=== PATIENT | female | born 1990 | race African-American/Black ===

== ENCOUNTER 2017-09-05 07:30 | Emergency (ER) | payer SELFPAY ==
[2017-09-05 08:08] LABS: #Basophils 0.1 thou/uL (0.0-0.2); #Lymphocytes 2.2 thou/uL (1.20-3.40); #Monocytes 0.8 thou/uL (0.11-0.59); #Neutrophils 14.3 thou/uL (1.40-6.50); %Basophils 0.7 % (0.0-1.0); %Eosinophils 0.3 % (0.0-10.0); %Lymphocytes 12.8 % (21.0-51.0); %Monocytes 4.3 % (0.0-10.0); %Neutrophils 81.9 % (42.0-75.0); Hemoglobin 13.5 g/dL (12.0-16.0); Mean Corpuscular HGB CONC 33.2 g/dL (32.0-36.0); Mean Corpuscular Hemoglobin 31.3 pg (27.0-31.0); Mean Corpuscular Volume 94.2 fl (81.0-99.0); Mean Platelet Volume 6.8 fL (7.4-10.4); Platelet Count 319 thou/uL (130-400); RBC Distribution Width 12.3 % (11.5-14.5); Red Blood Cell (RBC) Count 4.32 mill/uL (4.20-5.40); White Blood Cell (WBC) Count 17.5 thou/uL (4.8-10.8)
[2017-09-05 08:19] LABS: ALT (SGPT) 9 U/L (8-55); AST (SGOT) 10 U/L (5-34); Albumin 4.1 g/dL (3.5-5.0); Alkaline Phosphatase 49 U/L (40-150); Anion Gap 12 mmol/L (10-20); BUN (Urea Nitrogen) 8 mg/dL (7.0-18.7); Bilirubin, Total 0.9 mg/dL (0.2-1.2); CK (CPK) 71 U/L (29-168); Calc. Creatinine Clearance 0 mL/min (70-130); Calcium 9.5 mg/dL (7.8-10.44); Carbon Dioxide 22 mmol/L (22-29); Chloride 108 mmol/L (98-107); Estimated GFR-MDRD Greater than 90; Glucose 97 mg/dL (70-105); Potassium 3.6 mmol/L (3.5-5.1); Protein, Total 7.1 g/dL (6.0-8.3); Sodium 138 mmol/L (136-145)
[2017-09-05 08:22] LABS: CKMB 0.5 ng/mL (0-6.6); Troponin I Less than 0.010 ng/mL (< 0.028)
--- NOTE | 2017-09-05 09:06 | RAD ---
CHEST 2 VIEWS: HISTORY: Palpitations. Chest pain. COMPARISON: 08/30/16. FINDINGS: Cardiac silhouette and pulmonary vasculature are unremarkable. Mediastinum is midline. There is no confluent airspace consolidation, pleural fluid, or pneumothorax apparent. IMPRESSION: No active cardiopulmonary abnormalities demonstrated. POS: [facility]
[2017-09-05 09:12] LABS: Bilirubin Negative (Negative); Blood, Urine Moderate (Negative); Clarity CLOUDY (Clear); Glucose, Urine (Dipstick) Negative (Negative); Leukocyte Small (Negative); Nitrite Positive (Negative); Pregnancy Test - Urine (BHCG) Negative (Negative); Protein, Urine (Dipstick) Trace mg/dL (Neg-Trace); Specific Gravity, Urine 1.022 (1.002-1.036)
[2017-09-05 09:13] LABS: Pregu Control Background? CLEAR/WHITE (CLR/WHITE); Pregu Control Bar Appear? YES (CONTROL BAR); Specific Gravity 1.022 (1.002-1.036)
[2017-09-05 09:14] LABS: Bacteria/HPF 4+ HPF (None Seen); Pathc Cast-AUWi Flag 2.16 (0-2.49); Squamous Epithelial 0-3 HPF (0-3); WBC/HPF 21-50 HPF (0-3)
[2017-09-05 09:27] LABS: Hyaline Casts/LPF 0-3 HYALINE CAST LPF (0-3 Hyaline)
== END 2017-09-05 09:39 | disposition home or self-care (01) ==
LOC: ERS 07:30
DX: F41.9 Anxiety disorder, unspecified (principal); N39.0 Urinary tract infection, site not specified; F32.9 Major depressive disorder, single episode, unspecified; F17.210 Nicotine dependence, cigarettes, uncomplicated
CPT/HCPCS: 36416; 71046; 80053; 81003; 81015; 81025; 82550; 82553; 84484; 85025; 87077; 87086; 87186; 93005

== ENCOUNTER 2018-01-25 15:50 | Emergency (ER) | payer SELFPAY ==
[2018-01-25] MEDS ORDERED: Ketorolac Tromethamine 30 MG/ML VIAL ONE (16:19)
--- NOTE | 2018-01-25 16:23 | RAD ---
PA AND LATERAL VIEWS OF CHEST: Date: 01/25/18 HISTORY: Cough, fever. FINDINGS: Comparison made with exam of 09/05/17. The cardiomediastinum is normal. The lungs are expanded without focal areas of consolidation, pneumot horax, or pleural effusions. Bony structures are unremarkable. IMPRESSION: No radiographic evidence of acute cardiopulmonary process. POS: [facility]
[2018-01-25] MEDS ORDERED: Dexamethasone 4 MG TAB ONE (17:08)
== END 2018-01-25 17:11 | disposition home or self-care (01) ==
LOC: ERS 15:50
DX: J06.9 Acute upper respiratory infection, unspecified (principal); F41.9 Anxiety disorder, unspecified; F32.9 Major depressive disorder, single episode, unspecified; F17.210 Nicotine dependence, cigarettes, uncomplicated; Z79.899 Other long term (current) drug therapy
CPT/HCPCS: 71046; 94640; 96372; J1885; J7620; J8540

== ENCOUNTER 2018-05-04 09:39 | Emergency (ER) | payer SELFPAY ==
[2018-05-04 10:12] LABS: Bilirubin Negative (Negative); Blood, Urine Small (Negative); Clarity CLOUDY (Clear); Glucose, Urine (Dipstick) Negative (Negative); Leukocyte Moderate (Negative); Nitrite Positive (Negative); Protein, Urine (Dipstick) Negative (Neg-Trace); Specific Gravity, Urine 1.023 (1.002-1.036); Urobilinogen 0.2 mg/dL (0.2-1.0)
[2018-05-04 10:13] LABS: Pregnancy Test - Urine (BHCG) POSITIVE (Negative); Pregu Control Background? CLEAR/WHITE (CLR/WHITE); Pregu Control Bar Appear? YES (CONTROL BAR); Specific Gravity 1.023 (1.002-1.036)
[2018-05-04 10:14] LABS: Bacteria/HPF 4+ HPF (None Seen); Hyaline Casts/LPF 7-10 HYALINE CAST LPF (0-3 Hyaline); Pathc Cast-AUWi Flag 0.72 (0-2.49); Squamous Epithelial 0-3 HPF (0-3)
[2018-05-04 11:10] LABS: #Basophils 0.1 thou/uL (0.0-0.2); #Lymphocytes 2.5 thou/uL (1.20-3.40); #Monocytes 0.7 thou/uL (0.11-0.59); #Neutrophils 10.9 thou/uL (1.40-6.50); %Basophils 0.6 % (0.0-1.0); %Eosinophils 0.1 % (0.0-10.0); %Lymphocytes 17.3 % (21.0-51.0); %Monocytes 5.1 % (0.0-10.0); %Neutrophils 76.8 % (42.0-75.0); Hemoglobin 13.2 g/dL (12.0-16.0); Mean Corpuscular HGB CONC 35.2 g/dL (32.0-36.0); Mean Corpuscular Hemoglobin 32.1 pg (27.0-31.0); Mean Corpuscular Volume 91.3 fL (78.0-98.0); Mean Platelet Volume 6.5 fL (7.4-10.4); Platelet Count 334 thou/uL (130-400); RBC Distribution Width 11.8 % (11.5-14.5); Red Blood Cell (RBC) Count 4.09 mill/uL (4.20-5.40); White Blood Cell (WBC) Count 14.2 thou/uL (4.8-10.8)
[2018-05-04 11:29] LABS: ALT (SGPT) 11 U/L (8-55); AST (SGOT) 13 U/L (5-34); Albumin 4.6 g/dL (3.5-5.0); Alkaline Phosphatase 52 U/L (40-150); Anion Gap 11 mmol/L (10-20); BUN (Urea Nitrogen) 10 mg/dL (7.0-18.7); Bilirubin, Total 0.8 mg/dL (0.2-1.2); Calc. Creatinine Clearance 0 mL/min (70-130); Calcium 10.2 mg/dL (7.8-10.44); Carbon Dioxide 25 mmol/L (22-29); Chloride 103 mmol/L (98-107); Estimated GFR-MDRD Greater than 90; Globulin 3.4 g/dL (2.4-3.5); Glucose 92 mg/dL (70-105); Lipase 9 U/L (8-78); Potassium 4.1 mmol/L (3.5-5.1); Sodium 135 mmol/L (136-145)
--- NOTE | 2018-05-04 13:37 | ULT ---
PELVIC ULTRASOUND: DATE: 05/04/18. COMPARISON: None. HISTORY: A 27-year-old female with pelvic pain. TECHNIQUE: Multiplanar, escobedo scale sonographic imaging of the pelvis is obtained with transabdominal imaging and endovaginal imaging. The ovaries are assessed with color flow/spectral analysis. FINDINGS: An intrauterine gestational sac is noted. The uterus measures 8.0 x 4.0 x 5.3 cm. There is no significant free fluid seen in the pelvis. Within the above-described gestational sac is a yolk sac. There is a questionable small pole m easuring in the 2 mm range, which would correlate with a 5-week 5 day gestation. However, hear t tones could not be documented. The left ovary measures 1.6 x 1.6 x 2.7 cm and demonstrates blood flow without evidence for mass lesi on. The right ovary measures 3.1 x 1.9 x .9 cm and demonstrates blood flow without evidence for a ma ss lesion. No discrete subchorionic hemorrhage is evident on this examination. Estimated gestational age based on a crown-rump length of 0.2 cm is 5 weeks 6 days. Incidental note is made of a mildly complex follicle in the right ovary measuring 9 mm. IMPRESSION: Intrauterine gestational sac. Questionable internal pole with no heart tones appreciated on this exam. No subchorionic hemorrhage evident. Correlation with quantitative beta HCG at this time and in 48 hours is advised. The lack of he art tones could be on the basis of a normal early or spontaneous . POS: [facility]
== END 2018-05-04 12:00 | disposition home or self-care (01) ==
LOC: ERS 09:39
DX: O23.41 Unspecified infection of urinary tract in pregnancy, first trimester (principal); O99.511 Diseases of the respiratory system complicating pregnancy, first trimester; O99.341 Other mental disorders complicating pregnancy, first trimester; O99.331 Smoking (tobacco) complicating pregnancy, first trimester; Z71.6 Tobacco abuse counseling; Z79.899 Other long term (current) drug therapy
CPT/HCPCS: 36415; 76856; 80053; 81003; 81015; 81025; 83690; 84702; 85025; 86900; 86901; 99406

== ENCOUNTER 2018-05-05 07:08 | Emergency (ER) | payer SELFPAY ==
[2018-05-05] MEDS ORDERED: Ondansetron HCl/PF 4 MG/2 ML Vial ONE (08:20)
--- NOTE | 2018-05-05 09:18 | RAD ---
CHEST PA AND LATERAL: HISTORY: A 27-year-old female with a history of dyspnea. The patient is 5 weeks with chest pain, swe ating, abdominal pain, and difficulty breathing. COMPARISON: 01/25/18. FINDINGS: Heart size is normal. The lungs are clear. No pneumonia, edema, pleural effusion, or other acute pr ocess. POS: [facility]
[2018-05-05 09:45] LABS: #Lymphocytes 1.3 thou/uL (1.20-3.40); #Monocytes 0.3 thou/uL (0.11-0.59); #Neutrophils 12.6 thou/uL (1.40-6.50); %Basophils 0.3 % (0.0-1.0); %Eosinophils 0.1 % (0.0-10.0); %Lymphocytes 8.8 % (21.0-51.0); %Monocytes 2.3 % (0.0-10.0); %Neutrophils 88.5 % (42.0-75.0); Hemoglobin 12.5 g/dL (12.0-16.0); Mean Corpuscular HGB CONC 34.1 g/dL (32.0-36.0); Mean Corpuscular Hemoglobin 31.2 pg (27.0-31.0); Mean Corpuscular Volume 91.5 fL (78.0-98.0); Mean Platelet Volume 6.5 fL (7.4-10.4); Platelet Count 312 thou/uL (130-400); RBC Distribution Width 11.7 % (11.5-14.5); Red Blood Cell (RBC) Count 4.02 mill/uL (4.20-5.40); White Blood Cell (WBC) Count 14.2 thou/uL (4.8-10.8)
[2018-05-05 10:16] LABS: ALT (SGPT) 14 U/L (8-55); AST (SGOT) 14 U/L (5-34); Albumin 4.2 g/dL (3.5-5.0); Alkaline Phosphatase 49 U/L (40-150); Anion Gap 14 mmol/L (10-20); BUN (Urea Nitrogen) 11 mg/dL (7.0-18.7); Calc. Creatinine Clearance 0 mL/min (70-130); Calcium 9.6 mg/dL (7.8-10.44); Carbon Dioxide 20 mmol/L (22-29); Chloride 106 mmol/L (98-107); Estimated GFR-MDRD Greater than 90; Globulin 3.2 g/dL (2.4-3.5); Glucose 109 mg/dL (70-105); Potassium 4.2 mmol/L (3.5-5.1); Protein, Total 7.4 g/dL (6.0-8.3); Sodium 136 mmol/L (136-145)
[2018-05-05 10:20] LABS: CKMB 0.4 ng/mL (0-6.6); Troponin I Less than 0.010 ng/mL (< 0.028)
== END 2018-05-05 11:05 | disposition home or self-care (01) ==
LOC: ERS 07:08
DX: O21.9 Vomiting of pregnancy, unspecified (principal); O99.511 Diseases of the respiratory system complicating pregnancy, first trimester; J45.909 Unspecified asthma, uncomplicated; O99.341 Other mental disorders complicating pregnancy, first trimester; F41.9 Anxiety disorder, unspecified; F32.9 Major depressive disorder, single episode, unspecified; O99.331 Smoking (tobacco) complicating pregnancy, first trimester; F17.210 Nicotine dependence, cigarettes, uncomplicated; Z3A.01 Less than 8 weeks gestation of pregnancy
CPT/HCPCS: 36415; 71046; 80053; 82553; 84484; 85025; 85379; 93005; 96361; 96374; J2405

== ENCOUNTER 2018-12-31 17:28 | Emergency (ER) | payer MEDICAID, OTHER ==
[2018-12-31 18:21] LABS: #Basophils 0.1 thou/uL (0.0-0.2); #Eosinphils 0.1 thou/uL (0.0-0.7); #Lymphocytes 2.2 thou/uL (1.20-3.40); #Monocytes 0.7 thou/uL (0.11-0.59); %Basophils 0.6 % (0.0-1.0); %Eosinophils 0.9 % (0.0-10.0); %Lymphocytes 22.2 % (21.0-51.0); %Monocytes 6.9 % (0.0-10.0); %Neutrophils 69.4 % (42.0-75.0); Hemoglobin 12.3 g/dL (12.0-16.0); Mean Corpuscular HGB CONC 32.3 g/dL (32.0-36.0); Mean Corpuscular Hemoglobin 29.2 pg (27.0-31.0); Mean Corpuscular Volume 90.5 fL (78.0-98.0); Mean Platelet Volume 6.6 fL (7.4-10.4); Platelet Count 303 thou/uL (130-400); RBC Distribution Width 13.1 % (11.5-14.5); Red Blood Cell (RBC) Count 4.23 mill/uL (4.20-5.40)
[2018-12-31 18:53] LABS: ALT (SGPT) 33 U/L (8-55); AST (SGOT) 11 U/L (5-34); Albumin 3.7 g/dL (3.5-5.0); Alkaline Phosphatase 114 U/L (40-150); Anion Gap 11 mmol/L (10-20); BUN (Urea Nitrogen) 8 mg/dL (7.0-18.7); Bilirubin, Total 0.9 mg/dL (0.2-1.2); Calc. Creatinine Clearance 0 mL/min (70-130); Calcium 9.1 mg/dL (7.8-10.44); Carbon Dioxide 25 mmol/L (22-29); Chloride 108 mmol/L (98-107); Estimated GFR-MDRD Greater than 90; Globulin 3.1 g/dL (2.4-3.5); Glucose 101 mg/dL (70-105); Potassium 3.4 mmol/L (3.5-5.1); Protein, Total 6.8 g/dL (6.0-8.3); Sodium 141 mmol/L (136-145)
[2018-12-31] MEDS ORDERED: Diazepam 5 MG TAB ONE (19:21)
[2018-12-31] MEDS ORDERED: Ketorolac Tromethamine 30 MG/ML VIAL ONE (19:21)
== END 2018-12-31 20:45 | disposition home or self-care (01) ==
LOC: ERS 17:28
DX: M62.838 Other muscle spasm (principal); F32.9 Major depressive disorder, single episode, unspecified; F41.9 Anxiety disorder, unspecified; J45.909 Unspecified asthma, uncomplicated; Z87.891 Personal history of nicotine dependence
CPT/HCPCS: 36415; 80053; 83605; 85025; J1885

== ENCOUNTER 2019-01-01 09:10 | Inpatient (IN) | payer OTHER ==
[2019-01-01 09:56] LABS: Hemoglobin 12.7 g/dL (12.0-16.0); Mean Corpuscular HGB CONC 32.5 g/dL (32.0-36.0); Mean Corpuscular Volume 89.2 fL (78.0-98.0); Mean Platelet Volume 6.8 fL (7.4-10.4); Platelet Count 262 thou/uL (130-400); Red Blood Cell (RBC) Count 4.38 mill/uL (4.20-5.40); White Blood Cell (WBC) Count 24.6 thou/uL (4.8-10.8)
[2019-01-01 10:03] LABS: ALT (SGPT) 29 U/L (8-55); AST (SGOT) 12 U/L (5-34); Albumin 3.8 g/dL (3.5-5.0); Alkaline Phosphatase 113 U/L (40-150); Anion Gap 13 mmol/L (10-20); BUN (Urea Nitrogen) 10 mg/dL (7.0-18.7); Bilirubin, Total 1.3 mg/dL (0.2-1.2); Calc. Creatinine Clearance 0 mL/min (70-130); Carbon Dioxide 22 mmol/L (22-29); Chloride 108 mmol/L (98-107); Estimated GFR-MDRD Greater than 90; Globulin 3.1 g/dL (2.4-3.5); Glucose 110 mg/dL (70-105); Potassium 3.5 mmol/L (3.5-5.1); Protein, Total 6.9 g/dL (6.0-8.3); Sodium 139 mmol/L (136-145)
[2019-01-01] MEDS ORDERED: Acetaminophen 500 MG TAB ONE (10:07)
[2019-01-01 10:37] LABS: Band 12 % (5-11); Burr Cells SLIGHT = 2-5 cells (100X) (0-1/hpf); Elliptocytes SLIGHT = 2-5 cells (100X) (0-1/hpf); Lymphocytes 2 % (21-51); MDiff Complete? YES; Monocytes 3 % (0-10); Neutrophil 83 % (42-75); Platelet Morphology Comment Appears Adequate
[2019-01-01] MEDS ORDERED: Ondansetron PF 4 MG/2 ML Vial ONE (11:22)
[2019-01-01] MEDS ORDERED: Morphine 4 MG/ML VIAL ONE (11:22)
--- NOTE | 2019-01-01 12:29 | ULT ---
PELVIC ULTRASOUND INCLUDING TRANSABDOMINAL AND TRANSVAGINAL AND VASCULAR DUPLEX WITH COLOR AND SPECTR AL DOPPLER IMAGING: HISTORY: Pain. Vaginal delivery on 12/23/2018 with heavy bleeding and lower abdominal pain, which began yeste rday. FINDINGS: enlarged uterus. Mixed hypoechoic and intermediate density echogenicity within the endome trial cavity, evidence for blood, without a specific identifiable retained product. The uterus measures 13.4 x 6.3 x 9 cm. The right ovary measures 3.1 x 5.5 x 2.4 cm. The left ovary measures 3.4 x 4 x 1.8 cm. No abnormal pelvic fluid collection. Vascular duplex with color and spectral Doppler imaging demonstrates arterial inflow and venous outfl ow to the ovaries. No evidence for ovarian torsion. Trace cul-de-sac fluid. IMPRESSION: 1. Thickened endometrium with heterogeneously echogenic material within the uterus, which certainly could represent blood. 2. Somewhat enlarged ovaries bilaterally without evidence for ovarian torsion. 3. Trace cul-de-sac fluid. POS: [facility]
[2019-01-01] MEDS ORDERED: Clindamycin/D5W 900 mg/50 ml Premix Bag ONE (12:31)
[2019-01-01 12:41] LABS: Bilirubin Small (Negative); Blood, Urine Moderate (Negative); Clarity CLEAR (Clear); Glucose, Urine (Dipstick) Negative (Negative); Leukocyte Small (Negative); Nitrite Negative (Negative); Protein, Urine (Dipstick) 30 mg/dL (Neg-Trace); Specific Gravity, Urine 1.025 (1.002-1.036); pH, Urine 6.5 (5.0-9.0)
[2019-01-01 12:46] LABS: Bacteria/HPF None Seen HPF (None Seen); Hyaline Casts/LPF 4-6 HYALINE CAST LPF (0-3 Hyaline); RBC/HPF 21-50 HPF (0-3); Squamous Epithelial 0-3 HPF (0-3)
[2019-01-01] MEDS ORDERED: Ondansetron PF 4 MG/2 ML Vial IVP PRN (13:00)
[2019-01-01] MEDS ORDERED: Clindamycin/D5W 900 MG in Premix Bag 1 BAG IVPB ONE (13:00)
[2019-01-01] MEDS ORDERED: Ondansetron PF 4 MG/2 ML Vial SLOW IVP SCH (13:00)
[2019-01-01] MEDS ORDERED: Sodium Chloride 0.9% 1,000 ML IV SCH ×3 (13:00)
[2019-01-01] MEDS ORDERED: Ondansetron ODT 4 MG TAB SL PRN (13:00)
[2019-01-01] MEDS ORDERED: Morphine 4 MG/ML VIAL SLOW IVP SCH (13:00)
[2019-01-01] MEDS ORDERED: Acetaminophen 500 MG TAB PO SCH (13:00)
[2019-01-01] MEDS ORDERED: Gentamicin Sulfate 80 MG in Premix Bag 1 BAG IVPB ONE (13:15)
[2019-01-01] MEDS ORDERED: Lactated Ringer's 500 ML IV SCH (15:30)
[2019-01-01] MEDS: Ibuprofen 800 MG TAB PO PRN ×2 (15:35→22:30)
[2019-01-01] MEDS: Lactated Ringer's 1,000 ML IV SCH ×2 (15:41→22:32)
[2019-01-01] MEDS: Clindamycin/D5W 900 MG in Premix Bag 1 BAG IVPB SCH (20:32)
[2019-01-01] MEDS ORDERED: Gentamicin Sulfate 80 MG in Premix Bag 1 BAG IVPB SCH (21:00)
[2019-01-01] MEDS: Gentamicin Sulfate 80 MG in Premix Bag 1 BAG IVPB SCH (22:02)
[2019-01-01] MEDS ORDERED: Zolpidem Tartrate 5 MG TAB PO PRN (22:20)
[2019-01-02] MEDS: Acetaminophen 325 MG TAB PO PRN ×3 (00:26→21:34)
[2019-01-02] MEDS: Clindamycin/D5W 900 MG in Premix Bag 1 BAG IVPB SCH ×2 (03:54→12:24)
[2019-01-02] MEDS: Gentamicin Sulfate 80 MG in Premix Bag 1 BAG IVPB SCH ×2 (05:21→13:51)
[2019-01-02] MEDS: Ibuprofen 800 MG TAB PO PRN ×3 (06:35→20:51)
--- NOTE | 2019-01-02 06:58 | PDOC.EVN ---
Event Note - Event Note Event Note: Gent#1/Clinda#1 Complaining of increasing abdominal pain this AM. Temp to 104 last night, I was not notified. Abdomen is diffusely tender this AM. Plan: CT of abdomen. CBC ordered. BC and UCs are pending. I have notified [facility] for consult.
[2019-01-02 07:00] LABS: #Lymphocytes 1.1 thou/uL (1.20-3.40); #Monocytes 0.6 thou/uL (0.11-0.59); #Neutrophils 17.3 thou/uL (1.40-6.50); %Basophils 0.1 % (0.0-1.0); %Eosinophils 0.2 % (0.0-10.0); %Lymphocytes 5.8 % (21.0-51.0); %Monocytes 2.9 % (0.0-10.0); %Neutrophils 91.1 % (42.0-75.0); Mean Corpuscular HGB CONC 31.7 g/dL (32.0-36.0); Mean Corpuscular Hemoglobin 28.8 pg (27.0-31.0); Mean Corpuscular Volume 90.9 fL (78.0-98.0); Mean Platelet Volume 6.7 fL (7.4-10.4); Platelet Count 222 thou/uL (130-400); RBC Distribution Width 13.2 % (11.5-14.5); Red Blood Cell (RBC) Count 3.82 mill/uL (4.20-5.40)
--- NOTE | 2019-01-02 07:53 | HP ---
CHIEF COMPLAINT: Diffuse abdominal pain with temperature at home. HISTORY OF PRESENT ILLNESS: Ms. Dixon is a 28-year-old black G2 now P2, who is status post vaginal delivery at [facility] on 12/23/2018, who presents complaining of diffuse abdominal pain and temperature at home to 102. She states that her delivery on the was an uncomplicated vaginal delivery, but she states she did have a positive group B strep culture. The patient had been seen last night with musculoskeletal neck pain and was here for followup. She denies vaginal bleeding, change in bowel or bladder habits, photophobia, or difficulty bending her neck. PAST OBSTETRICAL HISTORY: Two vaginal deliveries at term. PAST MEDICAL HISTORY: Asthma. PAST SURGICAL HISTORY: LEEP procedure. CURRENT MEDICATIONS: vitamins, Motrin, and Tylenol. ALLERGIES: PENICILLIN, SULFA, BACTRIM, AND IODINE. SOCIAL HISTORY: Denies tobacco, alcohol, or drug use. FAMILY HISTORY: Unremarkable. REVIEW OF SYSTEMS: Positive for abdominal pain. Positive for temperature at home. Negative nausea, vomiting, or change in bowel or bladder habits. PHYSICAL EXAMINATION: VITAL SIGNS: In the ER show blood pressure 142/83, pulse of 98, respirations of 17, with a temperature of 99.1. GENERAL: She is pleasant, but complaining of abdominal discomfort. CHEST: Clear to auscultation. ABDOMEN: Soft, but is markedly tender to deep palpation and fundal manipulation. PELVIC: Deferred on the floor. Pelvic exam in the ER disclosed marked cervical motion tenderness. LABORATORY DATA: White count 24.6, hemoglobin and hematocrit 12.7 and 39.1, platelet count is 262,000. There are 83% neutrophils. Sodium 139, potassium 3.5, chloride 108, carbon dioxide 22, glucose 110, total bilirubin 1.3 with AST of 12 and an ALT of 29. Urinalysis is clear with a specific gravity of 1.025 with trace protein, negative glucose, trace ketones, moderate blood, negative nitrites, small bilirubin, and small leukocyte esterase. Pelvic ultrasound shows a enlarged uterus with a cavity that is consistent with blood clot. There is no specific retained placental fragments seen. Overall uterus measurement is 13.4, axial dimension. The ovaries are slightly enlarged bilaterally, but there is no evidence of ovarian torsion and there is a trace amount of cul-de-sac fluid. GC and chlamydia cultures were obtained in the ER. ASSESSMENT: Suspected endometritis. PLAN: The patient has been started empirically on gentamicin and clindamycin. GC and chlamydia cultures are pending. Blood and urine cultures have been obtained. She will be treated with antibiotics until she is 48 hours afebrile. The plan of treatment has been discussed with the patient and her and they are in agreement with it. Job ID: [id number] MTDD
[2019-01-02] MEDS: Lactated Ringer's 1,000 ML IV SCH ×2 (08:19→15:12)
--- NOTE | 2019-01-02 09:14 | PDOC.PN ---
- Objective Vital Signs & Weight: Vital Signs (12 hours) Temp Pulse Resp BP Pulse Ox 01/02/19 08:00 103.1 F H 123 H 22 H 143/86 H 92 L 01/02/19 04:00 98.9 F 104 H 18 127/82 96 01/02/19 00:45 104.1 F H 01/01/19 23:02 104.5 F H 129 H 22 H 169/95 H 97 I&O: 01/01/19 01/02/19 01/03/19 06:59 06:59 06:59 Intake Total 230 Balance 230 Result Diagrams: 01/02/19 06:42 01/01/19 09:27 Phys Exam - Physical Examination HEENT: moist MMs, sclera anicteric, oral pharynx no lesions, 2+ tonsils Neck: no nodes, no JVD, supple, full ROM Respiratory: clear to auscultation bilateral Cardiovascular: RRR, no rub S1, S2 Neurological: moves all 4 limbs Skin: no rash Dx/Plan - Plan * . Review of Systems - Medications/Allergies Allergies/Adverse Reactions: Allergies Allergy/AdvReac Type Severity Reaction Status Date / Time Penicillins Allergy Intermediate Rash Verified 07/22/14 21:38 Sulfa (Sulfonamide Allergy Intermediate Rash Verified 07/22/14 21:38 Antibiotics) chlorpheniramine polistirex Allergy Rash Verified 07/22/14 21:38 [From Tussionex] hydrocodone polistirex Allergy Rash Verified 07/22/14 21:38 [From Tussionex] orange juice Allergy Verified 07/29/14 11:01 sulfamethoxazole Allergy Rash Verified 07/22/14 21:38 [From Bactrim] trimethoprim [From Bactrim] Allergy Verified 06/24/14 13:32 Medications: Current Medications Acetaminophen (Tylenol) 650 mg PO Q6H PRN PRN Reason: TEMP > 101 F Last Admin: 01/02/19 07:40 Dose: 650 mg Clindamycin Phosphate/Dextrose (900 mg/ Device) 50 mls @ 100 mls/hr IVPB 0400, 1200,2000 [facility] Last Admin: 01/02/19 03:54 Dose: 50 mls Gentamicin Sulfate 80 mg/ (Device) 100 mls @ 200 mls/hr IVPB 0500,1300,2100 [facility] Last Admin: 01/02/19 05:21 Dose: 100 mls Lactated Ringer's (Lactated Ringer's) 1,000 mls @ 125 mls/hr IV .Q8H JAVON Last Admin: 01/02/19 08:19 Dose: Not Given Ibuprofen (Motrin) 800 mg PO Q8H PRN PRN Reason: Pain Last Admin: 01/02/19 06:35 Dose: 800 mg
[2019-01-02] MEDS ORDERED: Vancomycin HCl 1 GM in Premix Bag 1 BAG IVPB SCH (10:45)
[2019-01-02 10:51] LABS: ALT (SGPT) 22 U/L (8-55); AST (SGOT) 15 U/L (5-34); Albumin 2.9 g/dL (3.5-5.0); Alkaline Phosphatase 84 U/L (40-150); Anion Gap 12 mmol/L (10-20); BUN (Urea Nitrogen) 10 mg/dL (7.0-18.7); Bilirubin, Total 0.9 mg/dL (0.2-1.2); Calc. Creatinine Clearance 0 mL/min (70-130); Carbon Dioxide 20 mmol/L (22-29); Chloride 109 mmol/L (98-107); Estimated GFR-MDRD Greater than 90; Globulin 2.4 g/dL (2.4-3.5); Glucose 94 mg/dL (70-105); Potassium 3.3 mmol/L (3.5-5.1); Protein, Total 5.3 g/dL (6.0-8.3); Sodium 138 mmol/L (136-145)
[2019-01-02 11:32] VITALS: BMI 27.4
--- NOTE | 2019-01-02 11:35 | RAD ---
CHEST 2 VIEWS: Date: 01/02/19 HISTORY: Follow-up pelvic pain. Infection. COMPARISON: 05/05/18. FINDINGS: Minimal blunting of both costophrenic angles since the prior study of 05/05/18 suggesting small bilat eral pleural effusions. Heart size is normal. No confluent pneumonia. IMPRESSION: Small bilateral pleural effusions. No confluent pneumonia. POS: [facility]
[2019-01-02] MEDS ORDERED: Vancomycin HCl 1.75 GM in Sodium Chloride 0.9% 500 ML IVPB SCH (13:00)
[2019-01-02] MEDS ORDERED: Potassium Chloride 20 MEQ TAB PO SCH (14:30)
--- NOTE | 2019-01-02 14:49 | CON ---
DATE OF CONSULTATION: PRIMARY CARE PROVIDER: None. CHIEF COMPLAINT: Fever. HISTORY OF PRESENT ILLNESS: Ms. Buchanan is a pleasant 28-year-old lady, who was seen for fever. She was admitted to the hospital on January 01, 2019. She had a vaginal delivery at [facility] on December 23, 2018. She reports that last 2 days, she has had pain across her lower abdomen. She describes it as sharp, no known aggravating or relieving factors, denies any cough, but reports fever and chills. She denies nausea, vomiting, or diarrhea. The pain is nonradiating. She denies any cough. She denies any dysuria. REVIEW OF SYSTEMS: All other systems reviewed and found to be negative. PAST MEDICAL HISTORY: Asthma. SURGICAL HISTORY: LEEP procedure. SOCIAL HISTORY: The patient denies tobacco use, alcohol use, or recreational drug use. FAMILY HISTORY: She denies any family history of coronary artery disease. CURRENT MEDICATIONS: Tylenol, Motrin, and vitamins. ALLERGIES: SULFA AND PENICILLIN AND IODINE. PHYSICAL EXAMINATION: GENERAL: On examination, Ms. Buchanan is awake and alert, not in acute distress. VITAL SIGNS: Blood pressure is 139/84, pulse 91, respiratory rate 20, and oxygen saturation 98% on room air. She is afebrile. T-max in the hospital was 104.5 degrees Fahrenheit yesterday at 11:02 p.m. EYES: No scleral icterus, no conjunctival pallor. ENT: Moist mucosal membranes. No oropharyngeal erythema or exudates. NECK: Supple, nontender, trachea is midline. RESPIRATORY: Accessory muscles of breathing are not active. Chest wall movements are symmetric bilaterally. Lungs are clear to auscultation without wheeze, rhonchi, or crepitations. CARDIOVASCULAR: S1 and S2 are heard, regular. Peripheral pulses palpable. No carotid bruit. No pericardial rub. ABDOMEN: Soft, nontender, bowel sounds heard, no hepatomegaly, no splenomegaly. NEUROLOGIC: Cranial nerves 2 through 12 are intact. MUSCULOSKELETAL: Power is 5/5 in all 4 extremities. SKIN: No rashes or subcutaneous nodules. LYMPHATIC: No cervical lymphadenopathy. PSYCHIATRIC: Normal mood, normal affect, the patient is oriented to person, place, and time. LABORATORY DATA: Ms. Buchanan's labs and investigations were reviewed. She has leukocytosis with 19,000 white cells, down from 24,600 white cells yesterday; 91.9% of neutrophils. Yesterday, she had bandemia with 12% band neutrophils. She has normocytic anemia with hemoglobin 11, and normal platelet count. Sodium is normal at 138. Potassium is decreased at 3.3. LFTs are unremarkable. Lactic acid level is normal. Urinalysis is positive for small amount of leukocyte esterase and negative for nitrite. She had urine cultures, preliminary urine culture is growing Streptococcus group G. No growth in preliminary blood cultures at this time. Vaginitis screen was negative for Trichomonas, Gardnerella, and Jonna. Influenza screen is negative for influenza A and B. ASSESSMENT AND PLAN: Ms. Buchanan is a pleasant 28-year-old lady, who was seen at [facility] on January 02, 2019, Her problem list includes: 1. Sepsis: Ms. Buchanan is presenting with sepsis, source unclear at this time, although it could be secondary to urinary tract infection. She is currently on clindamycin and gentamicin. She reports that she develops hives with penicillin. We will start her on vancomycin and await final urine cultures and final blood cultures. Infectious Diseases Service also being consulted for opinion and help with management. 2. Urinary tract infection: Start vancomycin. 3. Hypokalemia: Replace potassium. Many thanks for allowing me to participate in your patient's care. Please feel free to contact me with any questions or concerns. LEVEL OF RISK: Moderate. LEVEL OF COMPLEXITY: Moderate. Job ID: [id number]
[2019-01-02] MEDS: predniSONE 50 MG TAB PO SCH (20:52)
[2019-01-02] MEDS: MEROPENEM 1 GM/50 ML 1 GM in Premix Bag 1 BAG IVPB SCH (20:52)
--- NOTE | 2019-01-03 00:37 | CON ---
DATE OF CONSULTATION: 01/02/2019 REASON FOR CONSULTATION: Endometritis. HISTORY OF PRESENT ILLNESS: A 28-year-old with history of asthma, 2 prior vaginal deliveries, the last one at [facility] on December 23 who developed a fever and diffuse abdominal pain more concentrated in the lower segments of her abdomen. She did have a group B strep culture positive in the period. Some headaches. No visual symptoms, sore throat, odynophagia, dysphagia no joint pains. No cough or chest pain. She has abdominal pain, which is moderate in the lower segments of the abdomen. PAST MEDICAL HISTORY: Asthma, G2, P2. ALLERGIES: 1. PENICILLIN. DOES NOT REMEMBER EXACTLY WHAT HAPPENED MANY YEARS AGO. 2. SULFA DRUGS. 3. IODINE. SOCIAL HISTORY: Never smoker. FAMILY HISTORY: Noncontributory. PHYSICAL EXAMINATION: VITAL SIGNS: T-max 104, now she is 103 and looks like she is having chills again, BP 118/62, pulse 104. GENERAL: Awake, alert, oriented. SKIN: Unremarkable. No lymphadenopathy. Ocular movements conjugate. Sclerae white. Pupils are equal. Conjunctivae normal. Oral cavity normal. NECK: Supple. No jugular vein distention. LUNGS: Symmetric. Clear breath sounds. S1, S2. Regular rate. No S3 or S4. ABDOMEN: Soft with tenderness in the lower segments, both right and left lower quadrants and the suprapubic area. Voiding without difficulty. No joint symptoms, no neurological symptoms. LABORATORY DATA: White cell count 24.6 and now 19, hemoglobin 11, platelets 222 with 83% neutrophils, 12% bands. Chemistry with potassium of 3.3, creatinine 0.81. Urinalysis with 11-20 WBCs. Microbiology, group G strep from urine culture. Vaginitis screen negative. Blood culture is negative. IMAGING: Chest x-ray with no infiltrates. Pelvic she does have small bilateral pleural effusions on pelvic ultrasound with thickened endometrium with heterogeneously echogenic material within the ureters, somewhat enlarged ovaries. ASSESSMENT: endometritis with persistence of fever. DISCUSSION: The differential diagnosis includes simple endometritis due to the usual pathogens including group B streptococcus, anaerobes, gram-negative rods, possibility of Staphylococcus aureus is less likely versus other complications such as septic pelvic thrombophlebitis. Switch her to meropenem and if not better, then MRI of the abdomen and pelvis to rule out septic thrombophlebitis. Job ID: [id number]
[2019-01-03] MEDS ORDERED: Vancomycin HCl 1.25 GM in Sodium Chloride 0.9% 250 ML 250 ML IVPB SCH (01:00)
[2019-01-03] MEDS: MEROPENEM 1 GM/50 ML 1 GM in Premix Bag 1 BAG IVPB SCH ×3 (03:47→20:51)
[2019-01-03] MEDS: Lactated Ringer's 1,000 ML IV SCH (03:47)
[2019-01-03] MEDS: predniSONE 50 MG TAB PO SCH ×2 (03:47→08:04)
[2019-01-03] MEDS ORDERED: Loperamide HCl 2 MG CAP PO PRN (07:29)
[2019-01-03] MEDS ORDERED: Eucerin (Mineral Oil/Petrolatum,White) 30 gm Jar TOP PRN (07:29)
[2019-01-03] MEDS ORDERED: Artificial Tears 18 DROP/0.9 ML EA EYE PRN (07:29)
[2019-01-03] MEDS ORDERED: Zolpidem Tartrate 5 MG TAB PO PRN (07:29)
[2019-01-03] MEDS ORDERED: Ondansetron ODT 4 MG TAB PO PRN (07:29)
[2019-01-03] MEDS ORDERED: hydrALAZINE 20 MG/ML VIAL SLOW IVP PRN (07:29)
[2019-01-03] MEDS ORDERED: Senokot S 8.6-50 MG TAB PO PRN (07:29)
[2019-01-03] MEDS ORDERED: Sodium Chloride 0.65% Nasal 44 ML BOT EA NARE PRN (07:29)
[2019-01-03] MEDS ORDERED: Bisacodyl 5 MG TAB PO PRN (07:29)
[2019-01-03] MEDS ORDERED: Diabetic Tussin 200 MG/10 ML UDCUP PO PRN (07:29)
[2019-01-03] MEDS ORDERED: Cepastat Lozenges 1 LOZ PO PRN (07:29)
[2019-01-03] MEDS ORDERED: Ondansetron PF 4 MG/2 ML Vial IVP PRN (07:29)
[2019-01-03] MEDS ORDERED: diphenhydrAMINE 25 MG CAP PO SCH (08:00)
--- NOTE | 2019-01-03 08:13 | PRG ---
DATE OF SERVICE: 01/03/2019 SUBJECTIVE: The patient is a 28-year-old female, who was admitted for endomyometritis 2 days ago. Given the severity of her fevers over her first night, Medicine was consulted for further medication recommendations, who later consulted Infectious Disease. She as of last night was placed on meropenem. The patient has had a temperature yesterday evening at 103 around 9 o'clock. Since then, she has remained afebrile. The patient reports this morning that she is feeling better, that her pain is improving and has no complaints. OBJECTIVE: VITAL SIGNS: Temperature this morning is 98.3, blood pressure 147/87, pulse of 60, respiratory rate of 16, and saturating 98% on room air. GENERAL: She appears to be in no acute distress. She is alert, oriented, cooperative, and pleasant to interact with. HEENT: Head, normocephalic and atraumatic. ABDOMEN: Soft. LABORATORY DATA: CBC this morning is pending. ASSESSMENT AND PLAN: The patient is hospital day 3 for endomyometritis and has now been on meropenem for approximately 12 hours. We will continue in-house care. Lab work yesterday also demonstrated a low potassium, which has been treated. CT scan, which was ordered yesterday was unable to be completed due to the patient's allergy to iodine, however, the patient has received prednisone over the last 12 hours and preparation for a CT scan this morning. Dr. Bergeron will be coming on this morning and can follow up on the results. Job ID: [id number]
[2019-01-03 08:35] LABS: Hemoglobin 10.5 g/dL (12.0-16.0); Mean Corpuscular HGB CONC 32.8 g/dL (32.0-36.0); Mean Corpuscular Hemoglobin 29.5 pg (27.0-31.0); Mean Platelet Volume 7.6 fL (7.4-10.4); Platelet Count 180 thou/uL (130-400); RBC Distribution Width 13.2 % (11.5-14.5); Red Blood Cell (RBC) Count 3.54 mill/uL (4.20-5.40); White Blood Cell (WBC) Count 17.3 thou/uL (4.8-10.8)
[2019-01-03 08:47] LABS: Band 26 % (5-11); Lymphocytes 8 % (21-51); MDiff Complete? YES; Neutrophil 66 % (42-75); Polychromasia SLIGHT = 2-3 cells (100X) (0-2/hpf)
--- NOTE | 2019-01-03 09:17 | CT ---
CT Abdomen Pelvis W Con History: [10-11 days , abdominal pain, fever, spontaneous vaginal delivery.] Comparison: Ultrasound 2 days prior of the pelvis Findings: Small bilateral pleural effusions. Atelectatic changes both lung bases. Small volume perihe patic fluid. The uterus is engorged. Gonadal vessels are distended. Aortic contour is not aneurysmal. There is contrast throughout the large and small bowel. No dilated loops of large or small bowel. Hypodensity is present hepatic segment 7, incompletely evaluated on this examination, measuring 7 mm. Mild periportal edema. Mild retroperitoneal edema. 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 There is no acute osseous abnormality. Mild third spacing of fluid. Mild congestive changes of the colon. Impression: 1. Expected findings. Volume overload and hepatic congestive changes, periportal edema, sm all effusions and third spacing of fluid. There is also mild retroperitoneal fluid, likely congestive in nature. 2. 7 millimeter hypodense hepatic segment 7 incompletely evaluated on this examination and not defini tively a cyst. Follow-up ultrasound in 6 months is recommended.
--- NOTE | 2019-01-03 10:37 | PDOC.PN ---
- Subjective Encounter Start Date: 01/03/19 Encounter Start Time: 08:00 -: old records requested/rev this morning pt feels better, denies cough/dyspnea, no chest pain, lower abdominal pain is improving - Objective MAR Reviewed: Yes Vital Signs & Weight: Vital Signs (12 hours) Temp Pulse Resp BP Pulse Ox 01/03/19 08:00 98.8 F 59 L 20 162/88 H 98 01/03/19 06:01 98.3 F 01/03/19 03:42 97.9 F 60 16 147/87 H 98 01/02/19 23:44 99.1 F 74 16 137/76 98 01/02/19 22:42 101.2 F H Weight Weight 164 lb 14.492 oz I&O: 01/02/19 01/03/19 01/04/19 06:59 06:59 06:59 Intake Total 230 1813 Balance 230 1813 Result Diagrams: 01/03/19 07:31 01/02/19 10:11 Radiology Reviewed by me: Yes (CT abdomen and Pelvis noted) Phys Exam - Physical Examination Constitutional: NAD HEENT: PERRLA, moist MMs, sclera anicteric Neck: no JVD, supple Respiratory: no wheezing, no rales, no rhonchi Cardiovascular: RRR, no significant murmur, no rub Gastrointestinal: soft, no distention, positive bowel sounds Musculoskeletal: no edema, pulses present Neurological: non-focal, normal sensation, moves all 4 limbs Lymphatic: no nodes Psychiatric: normal affect, A&O x 3 Skin: no rash, normal turgor Dx/Plan (1) Endometritis following delivery Code(s): O86.12 - ENDOMETRITIS FOLLOWING DELIVERY Status: Acute (2) Hypokalemia Code(s): E87.6 - HYPOKALEMIA Status: Acute (3) Sepsis Code(s): A41.9 - SEPSIS, UNSPECIFIED ORGANISM Status: Acute (4) UTI (urinary tract infection) Status: Acute (5) Anemia, normocytic normochromic Code(s): D64.9 - ANEMIA, UNSPECIFIED Status: Chronic (6) Asthma Code(s): J45.909 - UNSPECIFIED ASTHMA, UNCOMPLICATED Status: Chronic - Plan cont current plan of care, continue antibiotics * DC IVF * continue meropenam * medication reviewed as below * symptomatic treatment * ambulate as tolerated * repeat labs tomorrow. Review of Systems - Review of Systems ENT: negative: Ear Pain, Ear Discharge, Nose Pain, Nose Discharge, Nose Congestion, Mouth Pain, Mouth Swelling, Throat Pain, Throat Swelling, Other Respiratory: negative: Cough, Dry, Shortness of Breath, Hemoptysis, SOB with Excertion, Pleuritic Pain, Sputum, Wheezing Cardiovascular: negative: chest pain, palpitations, orthopnea, paroxysmal nocturnal dyspnea, edema, light headedness, other Gastrointestinal: negative: Nausea, Vomiting, Abdominal Pain, Diarrhea, Constipation, Melena, Hematochezia, Other Genitourinary: negative: Dysuria, Frequency, Incontinence, Hematuria, Retention , Other Musculoskeletal: negative: Neck Pain, Shoulder Pain, Arm Pain, Back Pain, Hand Pain, Leg Pain, Foot Pain, Other Skin: negative: Rash, Lesions, Bernard, Bruising, Other - Medications/Allergies Allergies/Adverse Reactions: Allergies Allergy/AdvReac Type Severity Reaction Status Date / Time Penicillins Allergy Intermediate Rash Verified 01/02/19 13:47 Sulfa (Sulfonamide Allergy Intermediate Rash Verified 01/02/19 13:47 Antibiotics) chlorpheniramine polistirex Allergy Rash Verified 01/02/19 13:47 [From Tussionex] hydrocodone polistirex Allergy Rash Verified 01/02/19 13:47 [From Tussionex] Iodinated Contrast- Oral and Allergy Hives Verified 01/02/19 13:47 IV Dye orange juice Allergy Verified 01/02/19 13:47 sulfamethoxazole Allergy Rash Verified 01/02/19 13:47 [From Bactrim] trimethoprim [From Bactrim] Allergy Verified 01/02/19 13:47 Medications: Current Medications Acetaminophen (Tylenol) 650 mg PO Q6H PRN PRN Reason: TEMP > 101 F Last Admin: 01/02/19 21:34 Dose: 650 mg Artificial Tears (Tears Naturale) 2 drop EA EYE PRN PRN PRN Reason: Dry Eyes Bisacodyl (Dulcolax) 10 mg PO DAILYPRN PRN PRN Reason: Constipation Guaifenesin (Robitussin Sf) 200 mg PO Q4H PRN PRN Reason: Cough Hydralazine HCl (Apresoline) 10 mg SLOW IVP Q4H PRN PRN Reason: SBP > 180 and HR < 70 Meropenem 1 gm/ Device 50 mls @ 100 mls/hr IVPB 0400,1200,2000 [facility] Last Admin: 01/03/19 03:47 Dose: 50 mls Ibuprofen (Motrin) 800 mg PO Q8H PRN PRN Reason: Pain Last Admin: 01/02/19 20:51 Dose: 800 mg Loperamide HCl (Imodium) 2 mg PO PRN PRN PRN Reason: Diarrhea/Loose Stools Mineral Oil/White Petrolatum (Eucerin Cream) 0 gm TOP BIDPRN PRN PRN Reason: Dry Skin Ondansetron HCl (Zofran Odt) 4 mg PO Q6H PRN PRN Reason: Nausea/Vomiting Ondansetron HCl (Zofran) 4 mg IVP Q6H PRN PRN Reason: Nausea/Vomiting Saccharomyces Boulardii (Florastor) 250 mg PO DAILY [facility] Senna/Docusate Sodium (Senokot S) 2 tab PO BID PRN PRN Reason: Constipation Sodium Chloride (Flush - Normal Saline) 10 ml IVF Q12HR [facility] Last Admin: 01/02/19 21:45 Dose: Not Given Sodium Chloride (Flush - Normal Saline) 10 ml IVF PRN PRN PRN Reason: Saline Flush Sodium Chloride ([place]ice Nasal [place] 0.65%) 0 ml EA NARE QIDPRN PRN PRN Reason: Nasal Congestion Throat Lozenges (Cepastat Lozenges) 1 zeina PO Q2H PRN PRN Reason: Sore Throat Zolpidem Tartrate (Ambien) 5 mg PO HSPRN PRN PRN Reason: Insomnia
--- NOTE | 2019-01-03 12:32 | PDOC.EVN ---
Event Note - Event Note Event Note: Feeling much better. Presently AF. Abdomen is soft, much less tender. CT shows no evidence of abscess. Plan: Cont. ABX and current mgmt., ID consult by Dr. Carranza greatly appreciated.
[2019-01-03] MEDS: Saccharomyces boulardii 250 MG CAP PO SCH (12:56)
[2019-01-04] MEDS: Acetaminophen 325 MG TAB PO PRN (00:23)
--- NOTE | 2019-01-04 00:39 | PDOC.EVN ---
Event Note - Event Note Event Note: Meripenim #2 Continues to feel well. Tolerating diet, no N/V. Afebrile this AM, no fever since last night. Abdomen is soft, minimal tenderness. Plan: Cont. this ABX x 48-72 hrs AF.
[2019-01-04] MEDS: Lactated Ringer's 1,000 ML IV SCH (00:57)
[2019-01-04] MEDS: MEROPENEM 1 GM/50 ML 1 GM in Premix Bag 1 BAG IVPB SCH ×3 (04:44→20:32)
[2019-01-04 07:56] LABS: #Monocytes 0.8 thou/uL (0.11-0.59); #Neutrophils 13.7 thou/uL (1.40-6.50); %Basophils 0.2 % (0.0-1.0); %Eosinophils 0.1 % (0.0-10.0); %Lymphocytes 12.1 % (21.0-51.0); %Monocytes 4.7 % (0.0-10.0); %Neutrophils 82.9 % (42.0-75.0); Hemoglobin 9.7 g/dL (12.0-16.0); Mean Corpuscular HGB CONC 32.7 g/dL (32.0-36.0); Mean Corpuscular Hemoglobin 29.1 pg (27.0-31.0); Mean Corpuscular Volume 88.8 fL (78.0-98.0); Mean Platelet Volume 7.9 fL (7.4-10.4); Platelet Count 245 thou/uL (130-400); RBC Distribution Width 13.2 % (11.5-14.5); Red Blood Cell (RBC) Count 3.34 mill/uL (4.20-5.40); White Blood Cell (WBC) Count 16.5 thou/uL (4.8-10.8)
[2019-01-04 08:02] LABS: Anion Gap 10 mmol/L (10-20); BUN (Urea Nitrogen) 14 mg/dL (7.0-18.7); Calc. Creatinine Clearance 145 mL/min (70-130); Calcium 8.5 mg/dL (7.8-10.44); Carbon Dioxide 23 mmol/L (22-29); Chloride 111 mmol/L (98-107); Estimated GFR-MDRD Greater than 90; Glucose 100 mg/dL (70-105); Potassium 3.4 mmol/L (3.5-5.1); Sodium 141 mmol/L (136-145)
[2019-01-04] MEDS ORDERED: Potassium Chloride 20 MEQ TAB PO SCH (09:45)
--- NOTE | 2019-01-04 10:27 | PDOC.PN ---
- Subjective Encounter Start Date: 01/04/19 Encounter Start Time: 08:30 Patient seen and examined. No new complaints. No overnight events - Objective Resuscitation Status - Order Detail: 01/03/19 10:36 Resuscitation Status Routine Resuscitation Status: FULL: Full Resuscitation MAR Reviewed: Yes Vital Signs & Weight: Vital Signs (12 hours) Temp Pulse Resp BP Pulse Ox 01/04/19 04:49 98.4 F 76 18 162/86 H 98 01/04/19 00:23 98.5 F 83 18 160/92 H 97 Weight Weight 164 lb 14.492 oz I&O: 01/03/19 01/04/19 01/05/19 06:59 06:59 06:59 Intake Total 1813 1420 Balance 1813 1420 Result Diagrams: 01/04/19 07:27 01/04/19 07:27 Phys Exam - Physical Examination Constitutional: NAD HEENT: PERRLA, moist MMs, sclera anicteric Neck: no JVD, supple Respiratory: no wheezing, no rales, no rhonchi Cardiovascular: RRR, no significant murmur, no rub Gastrointestinal: soft, non-tender, no distention, positive bowel sounds Musculoskeletal: no edema, pulses present Neurological: non-focal, normal sensation, moves all 4 limbs Lymphatic: no nodes Psychiatric: normal affect, A&O x 3 Skin: no rash, normal turgor Dx/Plan (1) Endometritis following delivery Code(s): O86.12 - ENDOMETRITIS FOLLOWING DELIVERY Status: Acute (2) Hypokalemia Code(s): E87.6 - HYPOKALEMIA Status: Acute (3) Sepsis Code(s): A41.9 - SEPSIS, UNSPECIFIED ORGANISM Status: Acute (4) UTI (urinary tract infection) Status: Acute (5) Anemia, normocytic normochromic Code(s): D64.9 - ANEMIA, UNSPECIFIED Status: Chronic (6) Asthma Code(s): J45.909 - UNSPECIFIED ASTHMA, UNCOMPLICATED Status: Chronic - Plan cont current plan of care, continue antibiotics * medication reviewed as below * symptomatic treatment * continue meropenam * replace potassium * repeat CBC, BMP tomorrow. Review of Systems - Review of Systems ENT: negative: Ear Pain, Ear Discharge, Nose Pain, Nose Discharge, Nose Congestion, Mouth Pain, Mouth Swelling, Throat Pain, Throat Swelling, Other Respiratory: negative: Cough, Dry, Shortness of Breath, Hemoptysis, SOB with Excertion, Pleuritic Pain, Sputum, Wheezing Cardiovascular: negative: chest pain, palpitations, orthopnea, paroxysmal nocturnal dyspnea, edema, light headedness, other Gastrointestinal: negative: Nausea, Vomiting, Abdominal Pain, Diarrhea, Constipation, Melena, Hematochezia, Other Genitourinary: negative: Dysuria, Frequency, Incontinence, Hematuria, Retention , Other Musculoskeletal: negative: Neck Pain, Shoulder Pain, Arm Pain, Back Pain, Hand Pain, Leg Pain, Foot Pain, Other Skin: negative: Rash, Lesions, Bernard, Bruising, Other - Medications/Allergies Allergies/Adverse Reactions: Allergies Allergy/AdvReac Type Severity Reaction Status Date / Time Penicillins Allergy Intermediate Rash Verified 01/02/19 13:47 Sulfa (Sulfonamide Allergy Intermediate Rash Verified 01/02/19 13:47 Antibiotics) chlorpheniramine polistirex Allergy Rash Verified 01/02/19 13:47 [From Tussionex] hydrocodone polistirex Allergy Rash Verified 01/02/19 13:47 [From Tussionex] Iodinated Contrast- Oral and Allergy Hives Verified 01/02/19 13:47 IV Dye orange juice Allergy Verified 01/02/19 13:47 sulfamethoxazole Allergy Rash Verified 01/02/19 13:47 [From Bactrim] trimethoprim [From Bactrim] Allergy Verified 01/02/19 13:47 Medications: Current Medications Acetaminophen (Tylenol) 650 mg PO Q6H PRN PRN Reason: TEMP > 101 F Last Admin: 01/04/19 00:23 Dose: 650 mg Artificial Tears (Tears Naturale) 2 drop EA EYE PRN PRN PRN Reason: Dry Eyes Bisacodyl (Dulcolax) 10 mg PO DAILYPRN PRN PRN Reason: Constipation Guaifenesin (Robitussin Sf) 200 mg PO Q4H PRN PRN Reason: Cough Hydralazine HCl (Apresoline) 10 mg SLOW IVP Q4H PRN PRN Reason: SBP > 180 and HR < 70 Meropenem 1 gm/ Device 50 mls @ 100 mls/hr IVPB 0400,1200,2000 JAVON Last Admin: 01/04/19 04:44 Dose: 50 mls Ibuprofen (Motrin) 800 mg PO Q8H PRN PRN Reason: Pain Last Admin: 01/02/19 20:51 Dose: 800 mg Loperamide HCl (Imodium) 2 mg PO PRN PRN PRN Reason: Diarrhea/Loose Stools Mineral Oil/White Petrolatum (Eucerin Cream) 0 gm TOP BIDPRN PRN PRN Reason: Dry Skin Ondansetron HCl (Zofran Odt) 4 mg PO Q6H PRN PRN Reason: Nausea/Vomiting Ondansetron HCl (Zofran) 4 mg IVP Q6H PRN PRN Reason: Nausea/Vomiting Potassium Chloride (K-Dur) 40 meq PO NOW [facility] Stop: 01/04/19 12:00 Saccharomyces Boulardii (Florastor) 250 mg PO DAILY [facility] Last Admin: 01/03/19 12:56 Dose: 250 mg Senna/Docusate Sodium (Senokot S) 2 tab PO BID PRN PRN Reason: Constipation Sodium Chloride (Flush - Normal Saline) 10 ml IVF Q12HR [facility] Last Admin: 01/04/19 04:44 Dose: 10 ml Sodium Chloride (Flush - Normal Saline) 10 ml IVF PRN PRN PRN Reason: Saline Flush Sodium Chloride (Isabella Nasal Jesse 0.65%) 0 ml EA NARE QIDPRN PRN PRN Reason: Nasal Congestion Throat Lozenges (Cepastat Lozenges) 1 zeina PO Q2H PRN PRN Reason: Sore Throat Zolpidem Tartrate (Ambien) 5 mg PO HSPRN PRN PRN Reason: Insomnia
[2019-01-04] MEDS: Saccharomyces boulardii 250 MG CAP PO SCH (13:53)
[2019-01-04 23:33] LABS: Chlamydia by PCR Inconclusive (NotDetected); GC by PCR Inconclusive (NotDetected)
[2019-01-05] MEDS: MEROPENEM 1 GM/50 ML 1 GM in Premix Bag 1 BAG IVPB SCH ×3 (04:10→20:17)
[2019-01-05 06:43] LABS: #Basophils 0.1 thou/uL (0.0-0.2); #Eosinphils 0.1 thou/uL (0.0-0.7); #Lymphocytes 2.4 thou/uL (1.20-3.40); #Monocytes 0.9 thou/uL (0.11-0.59); #Neutrophils 7.4 thou/uL (1.40-6.50); %Basophils 0.6 % (0.0-1.0); %Eosinophils 0.6 % (0.0-10.0); %Lymphocytes 21.9 % (21.0-51.0); %Monocytes 8.4 % (0.0-10.0); %Neutrophils 68.5 % (42.0-75.0); Hemoglobin 10.3 g/dL (12.0-16.0); Mean Corpuscular HGB CONC 32.4 g/dL (32.0-36.0); Mean Corpuscular Hemoglobin 28.7 pg (27.0-31.0); Mean Corpuscular Volume 88.4 fL (78.0-98.0); Mean Platelet Volume 7.5 fL (7.4-10.4); Platelet Count 294 thou/uL (130-400); RBC Distribution Width 13.1 % (11.5-14.5); Red Blood Cell (RBC) Count 3.59 mill/uL (4.20-5.40); White Blood Cell (WBC) Count 10.9 thou/uL (4.8-10.8)
[2019-01-05 07:04] LABS: Anion Gap 9 mmol/L (10-20); BUN (Urea Nitrogen) 10 mg/dL (7.0-18.7); Calc. Creatinine Clearance 131 mL/min (70-130); Calcium 8.6 mg/dL (7.8-10.44); Carbon Dioxide 25 mmol/L (22-29); Chloride 109 mmol/L (98-107); Estimated GFR-MDRD Greater than 90; Glucose 87 mg/dL (70-105); Potassium 3.6 mmol/L (3.5-5.1); Sodium 139 mmol/L (136-145)
--- NOTE | 2019-01-05 08:07 | PRG ---
DATE OF SERVICE: 01/05/2019 SUBJECTIVE: The patient is a 28-year-old female now HD #5 who was admitted for endomyometritis. She was ultimately transitioned to meropenem and has now been afebrile for 36 hours. Of note, reviewing the patient's record, the patient has been spiking severe range pressures on occasion with 160, 161, 164 systolic, most recently around midnight last night 164/91 and prior to that, at 4 in the morning the day prior, lab work demonstrates a urine with 1+ protein. The patient denies headache, chest pain, shortness of breath. OBJECTIVE: VITAL SIGNS: Currently, blood pressure 156/77, temperature 99.1, pulse of 73, respiratory rate 18, saturating 97% on room air. GENERAL: She appears to be in no acute distress. She is alert, oriented, cooperative, and pleasant to interact with. HEENT: Head is normocephalic and atraumatic. LUNGS: Clear to auscultation bilaterally. HEART: Regular rate and rhythm. GENITOURINARY: Fundus is firm. EXTREMITIES: Nontender and nonedematous. DTRs are 2+. LABORATORY DATA: White count of 10.9, hemoglobin 10.3, hematocrit 31.8, platelets of 294,000. ASSESSMENT AND PLAN: The patient is a 28-year-old female, responding to meropenem for endomyometritis, now afebrile 36 hours with a white count now clearly dropping. We will continue meropenem for the next 24 hours with anticipation of discharge tomorrow. Given her periodic spikes into the severe range and urine protein, we will place the patient on Procardia XL for the next week and monitor blood pressures while she is here. The patient does not have any other symptoms at this time. Job ID: [id number] [facility]
[2019-01-05] MEDS: Saccharomyces boulardii 250 MG CAP PO SCH (09:54)
[2019-01-05] MEDS: NIFEdipine XL 30 MG TAB PO SCH (09:54)
--- NOTE | 2019-01-05 12:31 | PDOC.PN ---
- Subjective Encounter Start Date: 01/05/19 Encounter Start Time: 12:29 Subjective: afebrile, no pain - Objective Resuscitation Status - Order Detail: 01/03/19 10:36 Resuscitation Status Routine Resuscitation Status: FULL: Full Resuscitation MAR Reviewed: Yes Vital Signs & Weight: Vital Signs (12 hours) Temp Pulse Resp BP BP Pulse Ox 01/05/19 12:27 57 L 01/05/19 12:00 98.9 F 57 L 20 176/100 H 01/05/19 09:54 70 01/05/19 07:58 98.9 F 70 20 168/92 H 99 01/05/19 04:13 99.1 F 73 18 156/77 H 97 01/05/19 00:45 99.5 F 78 18 164/91 H 98 Weight Weight 164 lb 14.492 oz I&O: 01/04/19 01/05/19 01/06/19 06:59 06:59 06:59 Intake Total 1420 1180 Balance 1420 1180 Result Diagrams: 01/05/19 06:04 01/05/19 06:04 Phys Exam - Physical Examination Neck: no JVD Respiratory: clear to auscultation bilateral Cardiovascular: RRR, no significant murmur Gastrointestinal: soft, positive bowel sounds Musculoskeletal: no edema Dx/Plan (1) HTN (hypertension) Code(s): I10 - ESSENTIAL (PRIMARY) HYPERTENSION Status: Acute (2) Endometritis following delivery Code(s): O86.12 - ENDOMETRITIS FOLLOWING DELIVERY Status: Acute (3) Sepsis Code(s): A41.9 - SEPSIS, UNSPECIFIED ORGANISM Status: Acute (4) UTI (urinary tract infection) Status: Acute Qualifiers: Urinary tract infection type: acute cystitis Hematuria presence: without hematuria Qualified Code(s): N30.00 - Acute cystitis without hematuria (5) Anemia, normocytic normochromic Code(s): D64.9 - ANEMIA, UNSPECIFIED Status: Chronic (6) Asthma Code(s): J45.909 - UNSPECIFIED ASTHMA, UNCOMPLICATED Status: Chronic Qualifiers: Asthma persistence: unspecified - Plan cont iv antibx -: procardia for HTN -: discuss with OB/ ID * .
--- NOTE | 2019-01-05 16:24 | PRG ---
DATE OF SERVICE: 01/05/2019 SUBJECTIVE: Feeling better. No pain. No respiratory symptoms. No diarrhea. OBJECTIVE: VITAL SIGNS: Last temperature elevation at 100.3 yesterday at 4:00 p.m. She has been afebrile since. GENERAL: Awake, alert, and oriented. LUNGS: Clear. HEART: S1 and S2, regular rate. ABDOMEN: Soft, not tender. EXTREMITIES: Moves all extremities equally. LABORATORY DATA: White cell count is down to 10.9, hemoglobin 10.3, and platelets 294. Chemistry is not remarkable. Negative blood cultures. IMAGING DATA: CT abdomen and pelvis from 01/03 with findings, some volume overload, hypodense hepatic segment 7 lesion. ASSESSMENT AND DISCUSSION: endometritis with now improvement of fever after switched to meropenem. If she continues to do well, then consider transition to oral 3rd generation cephalosporin such as Omnicef or Vantin plus oral Flagyl for discharge planning. Duration of therapy altogether probably around 10 to 14 days. If she has recrudescence of fever, then MRI of the pelvis to rule out septic thrombophlebitis. Job ID: [id number]
[2019-01-06] MEDS: MEROPENEM 1 GM/50 ML 1 GM in Premix Bag 1 BAG IVPB SCH ×2 (04:31→12:58)
[2019-01-06] MEDS: Ibuprofen 800 MG TAB PO PRN (04:36)
--- NOTE | 2019-01-06 09:45 | PRG ---
DATE OF SERVICE: 01/06/2019 SUBJECTIVE: The patient is a 28-year-old female, who was admitted, now hospital day 6 for endomyometritis and sepsis. She is status post vaginal delivery at [facility] on 12/23/2018. The patient reports that her delivery was uncomplicated, but was positive for group B strep. The patient reports that she is feeling much better and would like to go home. OBJECTIVE: VITAL SIGNS: T-max is 100.3 at 4:45 on 01/04 and she has been afebrile since, blood pressures 116-176/75-100 over the last 24 hours, pulse 80s to 90s, respiratory rate 16-20, temperature 97.7. GENERAL: Awake and alert, in no distress. CHEST: Nonlabored breathing. ABDOMEN: Soft and nontender to palpation. No guarding or rebound. ASSESSMENT AND PLAN: A 28-year-old, G2, P2, status post uncomplicated vaginal delivery on 12/23 at [facility], admitted for endomyometritis and sepsis. Her clinical picture has improved significantly. Per Dr. Carranza, she could be transitioned from meropenem to Omnicef or Vantin plus Flagyl for a total of 10- 14 days. She is on Procardia XL for her elevated blood pressures. It was started yesterday morning and she did spike a 176/100 at noon, that is at all normal blood pressures since then. We will continue to monitor her blood pressures until this afternoon and then consider discharge home this afternoon. Job ID: [id number] [facility]
[2019-01-06] MEDS: Saccharomyces boulardii 250 MG CAP PO SCH (10:33)
[2019-01-06] MEDS: NIFEdipine XL 30 MG TAB PO SCH (10:33)
[2019-01-06 12:52] VITALS: BP 132/92; TEMP 98.2
--- NOTE | 2019-01-06 20:00 | DIS ---
DATE OF ADMISSION: 01/01/2019 DATE OF DISCHARGE: 01/06/2019 SUMMARY OF HOSPITAL COURSE: Ms. Dixon was admitted on 01/01, with presumed endometritis. She was at that time 9 days status post uncomplicated with positive group B strep. During the hospitalization, she had an initial white count of 25,000 with 83% neutrophils. There is no evidence of retained products of conception. The patient had a temperature to 100.3 on 01/04. Urine culture was positive for group B strep during the hospitalization. Influenza negative. Blood cultures negative. White count decreased to 10.9 upon discharge with hematocrit of 31.8%. The patient had unremarkable CT scan of the abdomen. She responded to meropenem. She also had elevated blood pressures during her hospitalization, which responded well to a 30 mg of Procardia XL. The patient is discharged home on Keflex and Flagyl for 10 days along with Procardia XL 30 mg p.o. q.a.m. She will keep followup with her [facility] at [facility]. ER precautions given upon discharge. Job ID: [id number]
== END 2019-01-06 13:57 | disposition home or self-care (01) | DRG 776 ==
LOC: ERS 09:10 → 3SE 14:57
PROVIDERS: ADMIT Obstetrics & Gynecology; ATTEND Obstetrics & Gynecology
DX: O85 Puerperal sepsis (principal); O86.20 Urinary tract infection following delivery, unspecified; N71.9 Inflammatory disease of uterus, unspecified; D64.9 Anemia, unspecified; O99.53 Diseases of the respiratory system complicating the puerperium; O99.285 Endocrine, nutritional and metabolic diseases complicating the puerperium; J45.909 Unspecified asthma, uncomplicated; E87.6 Hypokalemia; Z88.0 Allergy status to penicillin; Z88.2 Allergy status to sulfonamides; Z91.041 Radiographic dye allergy status
CPT/HCPCS: 36415; 71046; 74177; 76856; 80048; 80053; 81003; 81015; 83605; 85025; 87040; 87077; 87086; 87480; 87491; 87510; 87591; 87660; 87804; 96361; 96365; 96367; 96372; 96375; 99406; J0360; J1580; J1885; J2185; J2270; J2405; J3370; J3490; J7050; Q0163

== ENCOUNTER 2019-03-18 21:41 | Emergency (ER) | payer OTHER ==
[2019-03-18 22:17] LABS: Bilirubin Moderate (Negative); Blood, Urine Large (Negative); Glucose, Urine (Dipstick) Negative (Negative); Leukocyte Small (Negative); Nitrite Negative (Negative); Protein, Urine (Dipstick) 100 mg/dL (Neg-Trace)
[2019-03-18 22:20] LABS: Pregnancy Test - Urine (BHCG) Negative (Negative); Pregu Control Background? CLEAR/WHITE (CLR/WHITE); Pregu Control Bar Appear? YES (CONTROL BAR); Specific Gravity 1.025 (1.002-1.036)
[2019-03-18 22:22] LABS: Clarity Hazy (Clear)
[2019-03-18 22:28] LABS: Bacteria/HPF Rare-Few HPF (None Seen); WBC/HPF 21-50 HPF (0-3)
[2019-03-18 22:29] LABS: Mucous/LPF 2+ LPF (<2+)
[2019-03-18 22:58] LABS: #Basophils 0.1 thou/uL (0.0-0.2); #Eosinphils 0.1 thou/uL (0.0-0.7); #Lymphocytes 2.7 thou/uL (1.20-3.40); #Monocytes 0.9 thou/uL (0.11-0.59); #Neutrophils 9.3 thou/uL (1.40-6.50); %Basophils 0.7 % (0.0-1.0); %Eosinophils 0.5 % (0.0-10.0); %Lymphocytes 20.5 % (21.0-51.0); %Monocytes 7.2 % (0.0-10.0); %Neutrophils 71.1 % (42.0-75.0); Hemoglobin 14.1 g/dL (12.0-16.0); Mean Corpuscular HGB CONC 32.2 g/dL (32.0-36.0); Mean Corpuscular Hemoglobin 28.7 pg (27.0-31.0); Mean Platelet Volume 6.8 fL (7.4-10.4); Platelet Count 384 thou/uL (130-400); RBC Distribution Width 13.8 % (11.5-14.5)
[2019-03-18] MEDS ORDERED: Ketorolac Tromethamine 30 MG/ML VIAL ONE (23:26)
[2019-03-20 00:26] LABS: Chlamydia by PCR Not Detected (NotDetected); GC by PCR Not Detected (NotDetected)
== END 2019-03-19 02:00 | disposition home or self-care (01) ==
LOC: ERS 21:41
DX: N94.6 Dysmenorrhea, unspecified (principal); J45.909 Unspecified asthma, uncomplicated; F41.9 Anxiety disorder, unspecified; F32.9 Major depressive disorder, single episode, unspecified; F17.200 Nicotine dependence, unspecified, uncomplicated
CPT/HCPCS: 81003; 81015; 81025; 85025; 87480; 87491; 87510; 87591; 87660; 96374; J1885

== ENCOUNTER 2019-06-16 17:22 | Emergency (ER) | payer OTHER, SELFPAY ==
[2019-06-16 18:16] LABS: #Basophils 0.1 thou/uL (0.0-0.2); #Eosinphils 0.2 thou/uL (0.0-0.7); #Lymphocytes 2.5 thou/uL (1.20-3.40); #Monocytes 0.9 thou/uL (0.11-0.59); #Neutrophils 9.1 thou/uL (1.40-6.50); %Basophils 0.5 % (0.0-1.0); %Eosinophils 1.5 % (0.0-10.0); %Lymphocytes 19.7 % (21.0-51.0); %Monocytes 6.7 % (0.0-10.0); %Neutrophils 71.7 % (42.0-75.0); Hemoglobin 13.5 g/dL (12.0-16.0); Mean Corpuscular HGB CONC 33.1 g/dL (32.0-36.0); Mean Corpuscular Hemoglobin 29.6 pg (27.0-31.0); Mean Corpuscular Volume 89.4 fL (78.0-98.0); Mean Platelet Volume 6.6 fL (7.4-10.4); Platelet Count 372 thou/uL (130-400); RBC Distribution Width 12.7 % (11.5-14.5); Red Blood Cell (RBC) Count 4.55 mill/uL (4.20-5.40); White Blood Cell (WBC) Count 12.7 thou/uL (4.8-10.8)
[2019-06-16 18:28] LABS: BHCG - Serum Negative (NEGATIVE); Pregs Control Background? CLEAR/WHITE (CLR/WHITE); Pregs Control Bar Appear? YES (CONTROL BAR)
[2019-06-16 18:40] LABS: ALT (SGPT) 11 U/L (8-55); AST (SGOT) 13 U/L (5-34); Albumin 4.2 g/dL (3.5-5.0); Alkaline Phosphatase 59 U/L (40-110); Anion Gap 9 mmol/L (10-20); BUN (Urea Nitrogen) 7 mg/dL (7.0-18.7); Bilirubin, Total 0.6 mg/dL (0.2-1.2); Calc. Creatinine Clearance 0 mL/min (70-130); Calcium 9.3 mg/dL (7.8-10.44); Carbon Dioxide 25 mmol/L (22-29); Chloride 109 mmol/L (98-107); Estimated GFR-MDRD Greater than 90; Globulin 2.9 g/dL (2.4-3.5); Glucose 97 mg/dL (70-105); Lipase 12 U/L (8-78); Potassium 3.8 mmol/L (3.5-5.1); Protein, Total 7.1 g/dL (6.0-8.3); Sodium 139 mmol/L (136-145)
[2019-06-16] MEDS ORDERED: Ondansetron ODT 4 MG TAB ONE (18:57)
== END 2019-06-16 18:58 | disposition home or self-care (01) ==
LOC: EEVIPCON 17:22 → ERS 17:22
DX: R11.2 Nausea with vomiting, unspecified (principal); J45.909 Unspecified asthma, uncomplicated; F41.9 Anxiety disorder, unspecified; F32.9 Major depressive disorder, single episode, unspecified; Z87.891 Personal history of nicotine dependence
CPT/HCPCS: 36415; 80053; 83690; 84703; 85025; 99284; Q0162

== ENCOUNTER 2019-10-08 14:10 | Emergency (ER) | payer SELFPAY ==
[2019-10-08 15:14] LABS: #Basophils 0.1 thou/uL (0.0-0.2); #Eosinphils 0.1 thou/uL (0.0-0.7); #Lymphocytes 1.8 thou/uL (1.20-3.40); #Monocytes 0.6 thou/uL (0.11-0.59); #Neutrophils 4.3 thou/uL (1.40-6.50); %Basophils 0.9 % (0.0-1.0); %Eosinophils 0.7 % (0.0-10.0); %Lymphocytes 26.4 % (21.0-51.0); %Monocytes 8.8 % (0.0-10.0); %Neutrophils 63.1 % (42.0-75.0); Hemoglobin 12.7 g/dL (12.0-16.0); Mean Corpuscular HGB CONC 32.5 g/dL (32.0-36.0); Mean Corpuscular Hemoglobin 29.7 pg (27.0-31.0); Mean Corpuscular Volume 91.3 fL (78.0-98.0); Mean Platelet Volume 6.8 fL (7.4-10.4); Platelet Count 293 thou/uL (130-400); RBC Distribution Width 13.1 % (11.5-14.5); Red Blood Cell (RBC) Count 4.27 mill/uL (4.20-5.40); White Blood Cell (WBC) Count 6.9 thou/uL (4.8-10.8)
[2019-10-08 15:19] LABS: BHCG - Serum Negative (NEGATIVE); Pregs Control Background? CLEAR/WHITE (CLR/WHITE); Pregs Control Bar Appear? YES (CONTROL BAR)
[2019-10-08 15:31] LABS: ALT (SGPT) 8 U/L (8-55); AST (SGOT) 10 U/L (5-34); Albumin 4.1 g/dL (3.5-5.0); Alkaline Phosphatase 62 U/L (40-110); Anion Gap 8 mmol/L (10-20); BUN (Urea Nitrogen) 8 mg/dL (7.0-18.7); Bilirubin, Total 0.5 mg/dL (0.2-1.2); Calc. Creatinine Clearance 0 mL/min (70-130); Calcium 8.8 mg/dL (7.8-10.44); Carbon Dioxide 27 mmol/L (22-29); Chloride 108 mmol/L (98-107); Estimated GFR-MDRD Greater than 90; Globulin 2.8 g/dL (2.4-3.5); Glucose 89 mg/dL (70-105); Potassium 3.9 mmol/L (3.5-5.1); Protein, Total 6.9 g/dL (6.0-8.3); Sodium 139 mmol/L (136-145)
[2019-10-08 15:46] LABS: Bacteria/HPF 4+ HPF (None Seen); Bilirubin Negative (Negative); Blood, Urine 3+ (Negative); Clarity Turbid (Clear); Glucose, Urine (Dipstick) Normal (Negative); Leukocyte 25 Leu/uL (Negative); Nitrite 2+ (Negative); Protein, Urine (Dipstick) 30 mg/dL (Neg-Trace); RBC/HPF Greater than 50 HPF (0-3); Squamous Epithelial 0-3 HPF (0-3); Urobilinogen Normal mg/dL (Less than 2); WBC/HPF 0-3 HPF (0-3)
== END 2019-10-08 15:50 | disposition home or self-care (01) ==
LOC: ERS 14:10
DX: N93.9 Abnormal uterine and vaginal bleeding, unspecified (principal); J45.909 Unspecified asthma, uncomplicated; F41.9 Anxiety disorder, unspecified; F32.9 Major depressive disorder, single episode, unspecified; F17.210 Nicotine dependence, cigarettes, uncomplicated
CPT/HCPCS: 36415; 80053; 81003; 81015; 84702; 84703; 85025; 99284

== ENCOUNTER 2022-04-24 20:37 | Emergency (ER) | payer OTHER ==
[2022-04-24 21:12] LABS: #Basophils 0.1 thou/uL (0.0-0.2); #Eosinphils 0.2 thou/uL (0.0-0.7); #Lymphocytes 3.8 thou/uL (1.20-3.40); #Monocytes 0.7 thou/uL (0.11-0.59); #Neutrophils 6.7 thou/uL (1.40-6.50); %Basophils 0.7 % (0.0-1.0); %Eosinophils 1.5 % (0.0-10.0); %Lymphocytes 32.9 % (21.0-51.0); %Monocytes 6.3 % (0.0-10.0); %Neutrophils 58.6 % (42.0-75.0); Hemoglobin 12.9 g/dL (12.0-16.0); Mean Corpuscular HGB CONC 33.8 g/dL (32.0-36.0); Mean Corpuscular Hemoglobin 30.2 pg (27.0-31.0); Mean Corpuscular Volume 89.4 fL (78.0-98.0); Mean Platelet Volume 6.7 fL (7.4-10.4); Platelet Count 359 thou/uL (130-400); RBC Distribution Width 12.7 % (11.5-14.5); Red Blood Cell (RBC) Count 4.26 mill/uL (4.20-5.40); White Blood Cell (WBC) Count 11.4 thou/uL (4.8-10.8)
[2022-04-24 21:19] LABS: BHCG - Serum Negative (NEGATIVE); Pregs Control Background? CLEAR/WHITE (CLR/WHITE); Pregs Control Bar Appear? YES (CONTROL BAR)
[2022-04-24 21:43] LABS: ALT (SGPT) 13 U/L (8-55); AST (SGOT) 13 U/L (5-34); Albumin 3.9 g/dL (3.5-5.0); Alkaline Phosphatase 60 U/L (40-110); Anion Gap 17 mmol/L (10-20); BUN (Urea Nitrogen) 12 mg/dL (7.0-18.7); Calc. Creatinine Clearance 0 mL/min (70-130); Calcium 9.1 mg/dL (7.8-10.44); Carbon Dioxide 21 mmol/L (22-29); Chloride 108 mmol/L (98-107); Estimated GFR 86; Globulin 3.3 g/dL (2.4-3.5); Glucose 97 mg/dL (70-105); Potassium 3.6 mmol/L (3.5-5.1); Protein, Total 7.2 g/dL (6.0-8.3); Sodium 142 mmol/L (136-145)
[2022-04-24 22:06] LABS: Bilirubin, Total 0.3 mg/dL (0.2-1.2)
== END 2022-04-24 23:19 | disposition home or self-care (01) ==
LOC: ERS 20:37
DX: R55 Syncope and collapse (principal); F17.210 Nicotine dependence, cigarettes, uncomplicated
CPT/HCPCS: 36415; 70450; 72125; 80053; 84484; 84703; 85025; 93005

== ENCOUNTER 2022-06-23 15:35 | Emergency (ER) | payer OTHER ==
[2022-06-23] MEDS ORDERED: Acetaminophen 325 MG TAB ONE (16:21)
[2022-06-23 16:22] LABS: #Basophils 0.1 thou/uL (0.0-0.2); #Eosinphils 0.3 thou/uL (0.0-0.7); #Lymphocytes 3.7 thou/uL (1.20-3.40); #Monocytes 0.8 thou/uL (0.11-0.59); #Neutrophils 9.1 thou/uL (1.40-6.50); %Basophils 0.4 % (0.0-1.0); %Lymphocytes 26.6 % (21.0-51.0); %Monocytes 5.8 % (0.0-10.0); %Neutrophils 65.3 % (42.0-75.0); Hemoglobin 12.4 g/dL (12.0-16.0); Mean Corpuscular HGB CONC 32.1 g/dL (32.0-36.0); Mean Corpuscular Hemoglobin 28.7 pg (27.0-31.0); Mean Corpuscular Volume 89.3 fl (78.0-98.0); Mean Platelet Volume 6.7 fL (7.4-10.4); Platelet Count 362 thou/uL (130-400); RBC Distribution Width 12.5 % (11.5-14.5); Red Blood Cell (RBC) Count 4.34 mill/uL (4.20-5.40); White Blood Cell (WBC) Count 13.9 thou/uL (4.8-10.8)
[2022-06-23 16:28] LABS: BHCG - Serum Negative (NEGATIVE); Pregs Control Background? CLEAR/WHITE (CLR/WHITE); Pregs Control Bar Appear? YES (CONTROL BAR)
[2022-06-23 18:42] LABS: Bilirubin Negative (Negative); Blood, Urine 3+ (Negative); Clarity Turbid (Clear); Glucose, Urine (Dipstick) Normal (Negative); Ketone, Urine Negative (Negative); Leukocyte 25 Leu/uL (Negative); Mucous/LPF Rare LPF (<2+); Nitrite Negative (Negative); Protein, Urine (Dipstick) 20 mg/dL (Neg-Trace); RBC/HPF Greater than 50 HPF (0-3); Specific Gravity, Urine 1.031 (1.002-1.036); Squamous Epithelial 0-3 HPF (0-3); pH, Urine 7.5 (5.0-9.0)
[2022-06-23 18:50] LABS: Bacteria/HPF Rare-Few HPF (None Seen)
[2022-06-24 21:25] LABS: Chlamydia by PCR Not Detected (NotDetected); GC by PCR Not Detected (NotDetected)
== END 2022-06-23 19:27 | disposition home or self-care (01) ==
LOC: ERS 15:35
DX: O03.9 Complete or unspecified spontaneous abortion without complication (principal); O99.331 Smoking (tobacco) complicating pregnancy, first trimester; F17.210 Nicotine dependence, cigarettes, uncomplicated; Z3A.01 Less than 8 weeks gestation of pregnancy
CPT/HCPCS: 36415; 76856; 81003; 81015; 84703; 85025; 86900; 86901; 87480; 87491; 87510; 87591; 87660

== ENCOUNTER 2022-09-26 09:05 | Emergency (ER) | payer OTHER ==
[2022-09-26 09:57] LABS: Bilirubin Negative (Negative); Blood, Urine Trace (Negative); Glucose, Urine (Dipstick) Normal (Negative); Ketone, Urine Negative (Negative); Leukocyte 250 Leu/uL (Negative); Nitrite Negative (Negative); Protein, Urine (Dipstick) 50 mg/dL (Neg-Trace); Specific Gravity, Urine 1.027 (1.002-1.036); Squamous Epithelial 21-50 HPF (0-3); WBC/HPF 21-50 HPF (0-3)
[2022-09-26 09:58] LABS: Bacteria/HPF Rare-Few HPF (None Seen); Clarity Cloudy (Clear); Pregnancy Test - Urine (BHCG) POSITIVE (Negative); Pregu Control Background? CLEAR/WHITE (CLR/WHITE); Pregu Control Bar Appear? YES (CONTROL BAR); Specific Gravity 1.027 (1.002-1.036)
[2022-09-26 10:39] LABS: #Basophils 0.1 thou/uL (0.0-0.2); #Eosinphils 0.1 thou/uL (0.0-0.7); #Monocytes 0.8 thou/uL (0.11-0.59); #Neutrophils 8.6 thou/uL (1.40-6.50); %Basophils 0.8 % (0.0-1.0); %Eosinophils 0.6 % (0.0-10.0); %Lymphocytes 24.1 % (21.0-51.0); %Neutrophils 68.5 % (42.0-75.0); Hemoglobin 13.6 g/dL (12.0-16.0); Mean Corpuscular Hemoglobin 29.5 pg (27.0-31.0); Mean Corpuscular Volume 89.3 fl (78.0-98.0); Mean Platelet Volume 6.7 fL (7.4-10.4); Platelet Count 389 10x3/uL (130-400); RBC Distribution Width 12.7 % (11.5-14.5); Red Blood Cell (RBC) Count 4.62 mill/uL (4.20-5.40); White Blood Cell (WBC) Count 12.6 10x3/uL (4.8-10.8)
[2022-09-26 11:00] LABS: ALT (SGPT) 14 U/L (8-55); AST (SGOT) 14 U/L (5-34); Albumin 4.1 g/dL (3.5-5.0); Alkaline Phosphatase 55 U/L (40-110); Anion Gap 10 mmol/L (10-20); BUN (Urea Nitrogen) 8 mg/dL (7.0-18.7); Bilirubin, Total 0.8 mg/dL (0.2-1.2); Calc. Creatinine Clearance 0 mL/min (70-130); Calcium 9.4 mg/dL (7.8-10.44); Carbon Dioxide 24 mmol/L (22-29); Chloride 105 mmol/L (98-107); Estimated GFR 104; Globulin 3.4 g/dL (2.4-3.5); Glucose 98 mg/dL (70-105); Lipase 10 U/L (8-78); Potassium 4.4 mmol/L (3.5-5.1); Protein, Total 7.5 g/dL (6.0-8.3); Sodium 135 mmol/L (136-145)
[2022-09-26 19:56] LABS: Chlamydia by PCR Not Detected (NotDetected); GC by PCR Not Detected (NotDetected)
== END 2022-09-26 12:45 | disposition home or self-care (01) ==
LOC: ERS 09:05
DX: O20.0 Threatened abortion (principal); D72.829 Elevated white blood cell count, unspecified; F17.210 Nicotine dependence, cigarettes, uncomplicated; Z3A.01 Less than 8 weeks gestation of pregnancy
CPT/HCPCS: 36415; 76801; 80053; 81003; 81015; 81025; 83690; 84702; 85025; 86900; 86901; 87086; 87480; 87491; 87510; 87591; 87660

== ENCOUNTER 2022-09-28 18:31 | Emergency (ER) | payer OTHER | END 2022-09-28 20:47 | disposition home or self-care (01) | LOC: ERS 18:31 | DX: O20.0 Threatened abortion (principal); O99.331 Smoking (tobacco) complicating pregnancy, first trimester; F17.210 Nicotine dependence, cigarettes, uncomplicated; Z3A.01 Less than 8 weeks gestation of pregnancy | CPT/HCPCS: 36415; 84702; 99284 ==

== ENCOUNTER 2022-10-05 08:41 | Emergency (ER) | payer OTHER ==
[2022-10-05] MEDS ORDERED: Acetaminophen 500 MG TAB ONE (09:02)
[2022-10-05] MEDS ORDERED: Ondansetron ODT 4 MG TAB ONE (09:02)
[2022-10-05] MEDS ORDERED: Ondansetron PF 4 MG/2 ML Vial ONE (09:58)
== END 2022-10-05 10:31 | disposition home or self-care (01) ==
LOC: ERS 08:41
DX: O98.511 Other viral diseases complicating pregnancy, first trimester (principal); U07.1 COVID-19; O21.9 Vomiting of pregnancy, unspecified; Z3A.01 Less than 8 weeks gestation of pregnancy; Z87.891 Personal history of nicotine dependence
CPT/HCPCS: 87804; 96372; 99284; J2405; Q0162; U0003; U0005

== ENCOUNTER 2022-12-26 09:31 | Emergency (ER) | payer OTHER ==
[2022-12-26 10:26] LABS: #Basophils 0.1 thou/uL (0.0-0.2); #Eosinphils 0.1 thou/uL (0.0-0.7); #Monocytes 0.6 thou/uL (0.11-0.59); #Neutrophils 8.3 thou/uL (1.40-6.50); %Basophils 0.5 % (0.0-1.0); %Eosinophils 0.5 % (0.0-10.0); %Lymphocytes 17.8 % (21.0-51.0); %Monocytes 5.2 % (0.0-10.0); %Neutrophils 75.9 % (42.0-75.0); Hemoglobin 11.4 g/dL (12.0-16.0); Mean Corpuscular HGB CONC 33.6 g/dL (32.0-36.0); Mean Corpuscular Hemoglobin 29.5 pg (27.0-31.0); Mean Corpuscular Volume 87.6 fl (78.0-98.0); Mean Platelet Volume 6.5 fL (7.4-10.4); Platelet Count 311 10x3/uL (130-400); RBC Distribution Width 12.2 % (11.5-14.5); Red Blood Cell (RBC) Count 3.87 mill/uL (4.20-5.40)
[2022-12-26 10:41] LABS: ALT (SGPT) Less than 7 U/L (8-55); AST (SGOT) 8 U/L (5-34); Albumin 3.3 g/dL (3.5-5.0); Alkaline Phosphatase 49 U/L (40-110); Anion Gap 12 mmol/L (10-20); BUN (Urea Nitrogen) 9 mg/dL (7.0-18.7); Bilirubin, Total 0.3 mg/dL (0.2-1.2); Calc. Creatinine Clearance 0 mL/min (70-130); Calcium 8.7 mg/dL (7.8-10.44); Carbon Dioxide 20 mmol/L (22-29); Chloride 109 mmol/L (98-107); Estimated GFR 121; Globulin 2.9 g/dL (2.4-3.5); Glucose 93 mg/dL (70-105); Lipase 14 U/L (8-78); Potassium 4.2 mmol/L (3.5-5.1); Protein, Total 6.2 g/dL (6.0-8.3); Sodium 137 mmol/L (136-145)
[2022-12-26] MEDS ORDERED: Ondansetron PF 4 MG/2 ML Vial ONE (11:52)
[2022-12-26] MEDS ORDERED: Acetaminophen 500 MG TAB ONE (11:52)
[2022-12-26 12:37] LABS: Bilirubin Negative (Negative); Blood, Urine Negative (Negative); Clarity Clear (Clear); Glucose, Urine (Dipstick) Normal (Negative); Ketone, Urine Negative (Negative); Leukocyte Negative Leu/uL (Negative); Nitrite Negative (Negative); Protein, Urine (Dipstick) 10 mg/dL (Neg-Trace); Specific Gravity, Urine 1.026 (1.002-1.036); Urobilinogen Normal mg/dL (Less than 2)
== END 2022-12-26 13:44 | disposition home or self-care (01) ==
LOC: ERS 09:31
DX: R11.2 Nausea with vomiting, unspecified (principal); D64.9 Anemia, unspecified; Z87.891 Personal history of nicotine dependence
CPT/HCPCS: 36415; 76815; 80053; 81003; 83690; 84702; 85025; 96361; 96374; J2405

== ENCOUNTER 2025-05-13 12:42 | Emergency (ER) | payer OTHER, SELFPAY ==
[2025-05-13] MEDS ORDERED: Ketorolac Tromethamine 30 MG (1 mL) VIAL ONE (13:17)
[2025-05-13] MEDS ORDERED: Cyclobenzaprine 10 MG TAB ONE (13:17)
[2025-05-13] MEDS ORDERED: HYDROcodone/Acetaminophen 5/325 mg Tablet ONE (14:01)
[2025-05-13 14:39] LABS: #Basophils 0.06 10x3/uL (0.0-0.2); #Eosinophils 0.14 10x3/uL (0.0-0.7); #Monocytes 0.66 10x3/uL (0.11-0.59); #Neutrophils 10.46 10x3/uL (1.40-6.50); %Basophils 0.4 % (0.0-1.0); %Eosinophils 1.0 % (0.0-10.0); %Lymphocytes 20.6 % (21.0-51.0); %Monocytes 4.6 % (0.0-10.0); %Neutrophils 73.2 % (42.0-75.0); Hematocrit 41.9 % (36.0-47.0); Hemoglobin 13.2 g/dL (12.0-16.0); Mean Corpuscular Hemoglobin 27.4 pg (27.0-31.0); Mean Corpuscular Volume 86.9 fL (78.0-98.0); Platelet Count 336 10x3/uL (130-400); Red Blood Cell (RBC) Count 4.82 mill/uL (4.20-5.40); White Blood Cell (WBC) Count 14.29 10x3/uL (4.8-10.8)
[2025-05-13 14:58] LABS: BHCG - Serum Negative (NEGATIVE); Pregs Control Background? CLEAR/WHITE (CLR/WHITE); Pregs Control Bar Appear? YES (CONTROL BAR)
[2025-05-13 15:02] LABS: ALT (SGPT) Less than 7 U/L (Less than 34); AST (SGOT) 19 U/L (11-34); Albumin 4.6 g/dL (3.1-4.5); Alkaline Phosphatase 64 U/L (40-110); Anion Gap 16 mmol/L (10-20); BUN (Urea Nitrogen) 9 mg/dL (7.0-18.7); Bilirubin, Total 0.9 mg/dL (0.3-1.2); Calc. Creatinine Clearance 0 mL/min (70-130); Calcium 9.8 mg/dL (7.8-10.44); Carbon Dioxide 22 mmol/L (22-29); Chloride 109 mmol/L (98-107); Globulin 3.4 g/dL (2.4-3.5); Glucose 83 mg/dL (70-105); Potassium 3.8 mmol/L (3.5-5.1); Sodium 143 mmol/L (136-145)
== END 2025-05-13 16:23 | disposition home or self-care (01) ==
LOC: ERS 12:42
DX: M54.50 Low back pain, unspecified (principal); Z87.891 Personal history of nicotine dependence
CPT/HCPCS: 72131; 80053; 84703; 85025; 86141; 96372; J1885

== ENCOUNTER 2025-06-12 18:11 | Emergency (ER) | payer SELFPAY ==
[2025-06-12 18:41] LABS: #Basophils 0.07 10x3/uL (0.0-0.2); #Eosinophils 0.13 10x3/uL (0.0-0.7); #Monocytes 0.60 10x3/uL (0.11-0.59); #Neutrophils 8.47 10x3/uL (1.40-6.50); %Basophils 0.5 % (0.0-1.0); %Eosinophils 1.0 % (0.0-10.0); %Lymphocytes 28.0 % (21.0-51.0); %Monocytes 4.6 % (0.0-10.0); %Neutrophils 65.7 % (42.0-75.0); Hematocrit 38.4 % (36.0-47.0); Hemoglobin 12.5 g/dL (12.0-16.0); Mean Corpuscular Hemoglobin 27.6 pg (27.0-31.0); Mean Corpuscular Volume 84.8 fL (78.0-98.0); Platelet Count 354 10x3/uL (130-400); Red Blood Cell (RBC) Count 4.53 mill/uL (4.20-5.40); White Blood Cell (WBC) Count 12.91 10x3/uL (4.8-10.8)
[2025-06-12] MEDS ORDERED: Acetaminophen 500 MG TAB ONE (18:50)
[2025-06-12] MEDS ORDERED: Metoclopramide HCl 10 MG (2 mL) VIAL ONE (18:50)
[2025-06-12] MEDS ORDERED: Ketorolac Tromethamine 30 MG (1 mL) VIAL ONE (18:50)
[2025-06-12] MEDS ORDERED: diphenhydrAMINE 50 MG/ML VIAL ONE (18:50)
[2025-06-12 19:08] LABS: BHCG - Serum Negative (NEGATIVE); Pregs Control Background? CLEAR/WHITE (CLR/WHITE); Pregs Control Bar Appear? YES (CONTROL BAR)
[2025-06-12 19:28] LABS: ALT (SGPT) 17 U/L (Less than 34); AST (SGOT) 31 U/L (11-34); Albumin 4.3 g/dL (3.1-4.5); Alkaline Phosphatase 59 U/L (40-110); Anion Gap 15 mmol/L (10-20); BUN (Urea Nitrogen) 10 mg/dL (7.0-18.7); Bilirubin, Total 0.4 mg/dL (0.3-1.2); Calc. Creatinine Clearance 0 mL/min (70-130); Calcium 9.5 mg/dL (7.8-10.44); Carbon Dioxide 22 mmol/L (22-29); Chloride 109 mmol/L (98-107); Globulin 3.5 g/dL (2.4-3.5); Glucose 98 mg/dL (70-105); Potassium 4.2 mmol/L (3.5-5.1); Sodium 142 mmol/L (136-145)
[2025-06-12] MEDS ORDERED: Ondansetron PF 4 MG/2 ML Vial ONE ×2 (20:00→20:10)
[2025-06-12 21:18] LABS: Bacteria/HPF None Seen HPF (None Seen); CAUTI Indications for Culture Pelvic or flank pain; Glucose, Urine (Dipstick) Normal (Negative); Leukocyte Negative Leu/uL (Negative); Protein, Urine (Dipstick) Negative (Neg-Trace); Specific Gravity, Urine 1.025 (1.002-1.036); WBC/HPF 0-3 HPF (0-3)
[2025-06-12 21:21] LABS: Urine Culture Reflex No No
== END 2025-06-12 22:03 | disposition home or self-care (01) ==
LOC: ERS 18:11
DX: R55 Syncope and collapse (principal); R51.9 Headache, unspecified; Z87.891 Personal history of nicotine dependence
CPT/HCPCS: 70450; 71045; 72125; 80053; 81001; 84484; 84703; 85025; 93005; 96374; 96375; J1200; J1885; J2405; J2765; J2919; J3010

== ENCOUNTER 2025-07-08 23:50 | Emergency (ER) | payer SELFPAY ==
[2025-07-09] MEDS ORDERED: Acetaminophen 500 MG TAB ONE (00:43)
[2025-07-09] MEDS ORDERED: Ondansetron PF 4 MG/2 ML Vial ONE (00:43)
[2025-07-09] MEDS ORDERED: Dexamethasone 10 MG/ML VIAL ONE (01:12)
== END 2025-07-09 01:22 | disposition home or self-care (01) ==
LOC: ERS 23:50
DX: J02.9 Acute pharyngitis, unspecified (principal)
CPT/HCPCS: 87081; 87428; 87430; 96372; 99283; J1100; J2405; Q0162

== ENCOUNTER 2025-08-06 16:26 | Emergency (ER) | payer SELFPAY ==
[2025-08-06] MEDS ORDERED: Ibuprofen 800 MG TAB ONE (17:23)
== END 2025-08-06 18:03 | disposition home or self-care (01) ==
LOC: ERS 16:26
DX: S80.12XA Contusion of left lower leg, initial encounter (principal); F17.290 Nicotine dependence, other tobacco product, uncomplicated; W01.0XXA Fall on same level from slipping, tripping and stumbling without subsequent striking against object, initial encounter
CPT/HCPCS: 99283